=== PATIENT | female | born 1990 | race Caucasian/White ===

== ENCOUNTER 2017-09-05 21:36 | Emergency (ER) | payer OTHER, SELFPAY ==
[2017-09-05 21:37] VITALS: BP 131/72; PULSE 92; RESP 18; TEMP 36.9; O2SAT 97; BMI 39.4
--- NOTE | 2017-09-05 22:03 | ED.VISSUMM ---
- ER Visit Summary Date of Service: 09/05/17 Chief Complaint: [] Cough History of Present Illness: The patient is a 26 F [] complaining of cough. Reports cough is nonproductive. Denies fevers. Denies chest pain or shortness of breath. No other complaints at this time. Physical Examination: [] Afebrile, vital signs stable. Patient is very malodorous. Moist mucous membranes. No posterior oropharyngeal erythema. Cardiovascular exam is regular rate and rhythm. Lungs are clear to auscultation. Abdomen is soft and nontender. Test Results: [] None. Emergency Department Course and Treatment: [] Patient given a single oral dose of Decadron for symptom relief. She was given a prescription for Tessalon Perles and encouraged to follow-up with a primary care physician. No diagnostic or laboratory testing was warranted for this very benign presentation. Treatment Plan: [] Follow-up with primary care physician. Disposition: [] Discharge, stable. Impression: [] URI This note was generated with [employer] dictation software. It may contain incorrect words, spelling, and punctuation that were not noted in review of the chart prior to signing ED Disposition - Plan for ED Patient: Chief Complaint: Cold Sx Referrals: NOT,DEFINED [Primary Care Provider] -
--- NOTE | 2017-09-05 22:05 | ED.DEP ---
ED Disposition - Plan for ED Patient: Disposition: Home or Assisted Living Chief Complaint: Cold Sx Instructions: ED Upper Resp Infec No Abx Tx Prescriptions: Benzonatate [Tessalon Perle] 100 mg PO 4X/DAY PRN PRN #20 cap PRN Reason: Cough Referrals: NOT,DEFINED [Primary Care Provider] -
== END 2017-09-05 22:19 | disposition home or self-care (01) ==
LOC: ED 22:16
PROVIDERS: Emergency Provider Emergency Medicine
DX: J06.9 Acute upper respiratory infection, unspecified (principal)
CPT/HCPCS: 99283

== ENCOUNTER 2018-10-23 17:02 | Emergency (ER) | payer OTHER, SELFPAY ==
[2018-10-23 17:04] VITALS: BP 127/78; PULSE 88; RESP 14; TEMP 36.8; O2SAT 98; BMI 40.9
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
[2018-10-23 17:51] LABS: Bacteria 0 SEEN /hpf (None Seen); Mucous, Urine 0 SEEN /hpf (<or=2+); Red Blood Cells-Urine 0 SEEN /hpf (0-5); White Blood Cells 0 SEEN /hpf (0-5)
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
[2018-10-23 18:17] LABS: Color, Urine Yellow (Yellow); Glucose, Dipstick Normal (Normal); Ketone-Dipstick Negative (Negative); Leukocyte Esterase-Dipstick 25 /ul (Negative); Nitrite-Dipstick Negative (Negative); Occult Blood-Urine Negative /ul (Negative); Protein-Dipstick Negative (Negative); Urine Bilirubin Dipstick Negative (Negative); Urine Clarity Sl. Cloudy (Clear); Urine Urobilinogen Normal (Normal)
[2018-10-23 18:21] LABS: Internal QC Validated? YES +Cl - CLEAR BKGD; Pregnancy, Urine Negative Negative
[2018-10-23 18:44] LABS: Squamous Epithelial Cells - UA 0-5 SEEN /hpf (5-10)
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
[2018-10-23 20:41] VITALS: PULSE 72; RESP 16; O2SAT 97
== END 2018-10-23 20:41 | disposition home or self-care (01) ==
PROVIDERS: Emergency Provider Emergency Medicine
DX: S16.1XXA Strain of muscle, fascia and tendon at neck level, initial encounter (principal); S39.012A Strain of muscle, fascia and tendon of lower back, initial encounter; V43.52XA Car driver injured in collision with other type car in traffic accident, initial encounter; Y93.I9 Activity, other involving external motion; Y92.410 Unspecified street and highway as the place of occurrence of the external cause; Y99.8 Other external cause status
CPT/HCPCS: 72040; 72100; 72170; 81001; 81025; 99282

== ENCOUNTER → 2020-03-08 16:18 | Outpatient (CLI) | payer SELFPAY ==
[2020-03-08 12:41] VITALS: BMI 40.9
[2020-03-08 18:24] LABS: Amphetamine Urine VISTA NEGATIVE (<1000 ng/mL); Barbiturate Urine VISTA NEGATIVE (< 200 ng/mL); Benzodiazepine Urine VISTA NEGATIVE (< 200 ng/mL); Cocaine Urine VISTA NEGATIVE (< 300 ng/mL); Ecstacy Urine VISTA NEGATIVE (< 500 ng/mL); Methadone Urine VISTA NEGATIVE (< 300 ng/mL); PCP Urine VISTA NEGATIVE (< 25 ng/mL); THC Urine VISTA NEGATIVE (< 50 ng/mL); Vista UDS pH Range 6
[2020-03-08 18:39] LABS: Chlamydia Trachomatis by PCR Negative (Negative); Neisserai gonorrhoeae by PCR Negative (Negative); Probe Check PASS; Sample Adequacy Control PASS; Specimen Processing Control PASS
== END ==
PROVIDERS: Referring Provider Obstetrics & Gynecology; Visit Provider Obstetrics & Gynecology
DX: Z34.90 Encounter for supervision of normal pregnancy, unspecified, unspecified trimester (principal)
CPT/HCPCS: 80307; 87086; 87088; 87491; 87591

== ENCOUNTER → 2020-03-09 10:38 | Outpatient (CLI) | payer SELFPAY ==
[2020-03-08 12:41] VITALS: BMI 40.9
[2020-03-09 11:05] LABS: Absolute Lymphocyte Count 1.24 X10^3/uL (0.83-4.51); Absolute Neutrophil Count 6.5 X10^3/uL (2.0-7.7); Basophil# 0.02 X10^3/uL; Basophil% 0.2 % (0-1); Eosinophil# 0.05 X10^3/uL; Eosinophils% 0.6 % (0-5); Hematocrit 39.9 % (37-47); Hemoglobin 13.6 g/dL (12.0-15.0); Lymphocyte # 1.24 X10^3/ul (4.0); Mean Corp Hgb Conc 34.1 g/dL (32-36); Mean Corpuscular Hgb 29.9 pg (27.0-32.0); Mean Corpuscular Volume 87.7 fL (81-99); Mean Platelet Vol. 11.2 fl (6.2-12.0); Monocyte% 4.8 % (0-10); NRBC Flagged by Analyzer 0 % (0-5); Neutrophil # 6.54 X10^3/uL (2.7-7.7); Platelet Count 217 K/mm3 (150-450); RBC Distribution Width CV 11.5 % (11.6-14.6); RBC Distribution Width SD 37.1 fl (35.1-43.9); Red Blood Count 4.55 M/mm3 (4.2-5.4); White Blood Count 8.3 K/mm3 (4.4-11.0)
[2020-03-09 11:54] LABS: NATERA MAILED SPECIMEN
[2020-03-09 12:08] LABS: HIV - WCH Non-Reactive (Nonreactive); Hepatitis B Surface Antigen Non-Reactive (Nonreactive); Hepatitis C Antibody Non-Reactive (Nonreactive); Rubella IgG 175.1 IU/mL
[2020-03-16 11:05] LABS: Rapid Plasmin Reagin (RPR) NONREACTIVE (NONREACTIVE)
== END ==
LOC: PAVLAB 10:40
PROVIDERS: Referring Provider Obstetrics & Gynecology; Visit Provider Obstetrics & Gynecology
DX: Z34.81 Encounter for supervision of other normal pregnancy, first trimester (principal)
CPT/HCPCS: 36415; 85025; 86592; 86703; 86762; 86803; 86850; 86900; 86901; 87340

== ENCOUNTER → 2020-03-14 12:56 | Outpatient (CLI) | payer SELFPAY ==
[2020-03-08 12:41] VITALS: BMI 40.9
[2020-03-14 13:25] LABS: Glucose Challenge Gest 1H 50g 113 mg/dL (70-140)
[2020-03-14 14:06] LABS: NATERA MAILED SPECIMEN
== END ==
LOC: PAVLAB 12:56
PROVIDERS: Referring Provider Obstetrics & Gynecology; Visit Provider Obstetrics & Gynecology
DX: O09.91 Supervision of high risk pregnancy, unspecified, first trimester (principal); O99.211 Obesity complicating pregnancy, first trimester; E66.9 Obesity, unspecified; Z3A.00 Weeks of gestation of pregnancy not specified
CPT/HCPCS: 36415; 82950

== ENCOUNTER 2020-03-25 08:10 | Emergency (ER) | payer SELFPAY ==
[2020-03-08 12:41] VITALS: BMI 40.9
[2020-03-25 08:11] VITALS: BP 96/56; PULSE 121; RESP 18; TEMP 36.3; O2SAT 97; BMI 40.3
--- NOTE | 2020-03-25 08:36 | ED.VIS.GEN ---
History of Present Illness Chief Complaint: Abd Pain Informant: Patient Narrative: 29-year-old female who is approximately 13 weeks reports abdominal cramping nausea vomiting. She has had nausea and vomiting this and is currently taking Zofran which she notes is constipating. She states she has not had a bowel movement for 1 week. She is tried Metamucil and MiraLAX. She has attempted a manual disimpaction. None of this has relieved her constipation. She states that she feels pressure in the rectum but nothing seems to,. She is worried about straining too hard. Past Medical History - Allergies and Home Meds Allergies/Adverse Reactions: Allergies iodine Allergy (Verified 03/25/20 08:10) [place] Primary Care Physician: Care Physician,No Primary [Primary Care Provider] - Smoking Status: Never smoker Review of Systems General: Denies: Chills, Fever, Sweats Eyes: Denies: Visual changes - bilaterally, Diplopia ENT: Denies: Rhinorrhea, Sore throat Cardiovascular: Denies: Chest pain, Palpitations Respiratory: Denies: Dyspnea, Cough, Dyspnea on exertion Gastrointestinal: Reports: Abdominal pain - Abdominal cramping, Nausea, Vomiting, Constipation. Denies: Diarrhea, Melena, Hematochezia Genitourinary: Denies: Dysuria, Hematuria, Frequency Musculoskeletal: Denies: Back pain, Extremity Pain Skin: Denies: Rash, Wounds Neurological: Denies: Headache, Weakness, Numbness Physical Exam Vital Signs/Narrative: Vital Signs Temp Pulse Resp BP Pulse Ox 03/25/20 08:11 97.3 F L 121 H 18 96/56 L 97 Inital Vital Signs reviewed: Yes General: Well nourished, Well developed, Obese, No Acute Distress Head: Normocephalic, Atraumatic Eyes: Perrl, EOMI ENT: Moist mucous membranes, No rhinorrhea Neck: Supple, Nontender Cardiovascular: Regular rate, Regular rhythm, No murmurs Respiratory: No distress, CTA bilaterally, Chest nontender Abdomen: Soft, Nontender, Nondistended, Normal bowel sounds Rectal: - - Soft stool in the rectal vault Back: Nontender, Normal Inspection Extremities: Nontender, No edema Skin: Normal color, No rash Neurological: Alert, Oriented x3, Cranial nerves II-XII grossly intact, Normal Strength, Normal Sensation Psychological: Normal affect, Normal Mood Diagnostic/Tx/Re-eval - Medical Decision Making Bedside ultrasound performed by this physician demonstrates a single live intrauterine with a heart rate of 154 bpm with good motion. She received a soapsuds enema and had excellent results. I would like to have her keep using daily MiraLAX. Return if worsening or concerns ED Disposition - Plan for ED Patient: Disposition: Home or Assisted Living Diagnosis: Constipation, Second trimester Instructions: ED Constipation Referrals: Elsy Duran MD [STAFF PHYSICIAN] - (as scheduled)
[2020-03-25 10:18] VITALS: BP 111/73; PULSE 82; RESP 16; O2SAT 98
== END 2020-03-25 10:19 | disposition home or self-care (01) ==
PROVIDERS: Emergency Provider Emergency Medicine
DX: O99.611 Diseases of the digestive system complicating pregnancy, first trimester (principal); K59.00 Constipation, unspecified; O99.211 Obesity complicating pregnancy, first trimester; Z3A.13 13 weeks gestation of pregnancy
CPT/HCPCS: 99284

== ENCOUNTER → 2020-05-03 | Outpatient (CLI) | payer SELFPAY ==
[2020-04-05 11:32] VITALS: BMI 40.3
--- NOTE | 2020-05-03 12:31 | US_ITS ---
STUDY: SECOND AND THIRD TRIMESTER OBSTETRICAL ULTRASOUND REASON FOR EXAM: Female, 29 years old SCREENING ANATOMY LMP: 12/20/2019. TECHNIQUE: Transvaginal TECHNICAL QUALITY: Adequate. PRIOR ULTRASOUND: None. FINDINGS: There is a single intrauterine fetus. The fetus is in a cephalic presentation. There is demonstrated cardiac activity with a heart rate of 60 bpm. There is a normal amniotic fluid volume. The largest amniotic fluid pocket measures 5.2 cm. The amniotic fluid index (BAALJI) is within normal limits. The placenta is posterior in location and is not low lying. There are Grade 0 placental changes. The cervix measures 5.7 in length. The bilateral adnexal regions are normal. BIOMETRY: BPD: 4.68 cm: 20 weeks, 1 days HC: 18.08 cm: 20 weeks, 3 days AC: 15.19 cm: 20 weeks, 2 days FL: 3 cm: 90 weeks, 1 days CI: 72% FL/BPD: 64% FL/HC: FL/AC: 19.7% HC/AC: 1.19 age by current US: 20 weeks, 0 days. SONA by current US: 09/20/2020. Estimated weight: 323 grams, +/- 48 grams, 73.6 %. Age by LMP: 19 weeks, 2 days. SONA by LMP: 09/25/2020. ANATOMY: Gender: Female Cranium: Normal lateral ventricles. Normal choroid plexus. Normal cerebellum. Normal cisterna magna. Normal face, nose and lips. Chest: Normal 4-chamber heart. Abdomen/Pelvis: Normal diaphragm. Normal stomach. Normal abdominal wall. Normal cord insertion. Normal 3 vessel cord. Normal kidneys. Normal bladder. Spine: Normal cervical spine. Normal thoracic spine. Normal lumbar spine. Normal sacrum. Extremities: Normal bilateral upper extremities. Normal bilateral lower extremities. US/OB Anatomy Scan IMPRESSION: Single live intrauterine gestation with a mean gestational age of 20 weeks. Electronically Signed: Mc Gay, at 15:40 EDT , Service support ,
== END | disposition home or self-care (01) ==
PROVIDERS: Referring Provider Obstetrics & Gynecology; Visit Provider Obstetrics & Gynecology
DX: O09.90 Supervision of high risk pregnancy, unspecified, unspecified trimester (principal); Z3A.00 Weeks of gestation of pregnancy not specified
CPT/HCPCS: 76805; 76817

== ENCOUNTER 2020-05-17 07:52 | Outpatient (CLI) | payer SELFPAY ==
[2020-05-05 15:05] VITALS: BMI 40.3
[2020-05-17 08:12] VITALS: BMI 39.8
[2020-05-17 08:19] VITALS: PULSE 71; TEMP 36.6; O2SAT 96
[2020-05-17 08:20] VITALS: BP 106/60; PULSE 72
[2020-05-17 08:30] LABS: Hematocrit 33.9 % (37-47); Hemoglobin 11.4 g/dL (12.0-15.0); Mean Corp Hgb Conc 33.6 g/dL (32-36); Mean Corpuscular Hgb 29.8 pg (27.0-32.0); Mean Corpuscular Volume 88.5 fL (81-99); Mean Platelet Vol. 10.7 fl (6.2-12.0); Platelet Count 197 K/mm3 (150-450); RBC Distribution Width CV 12.1 % (11.6-14.6); RBC Distribution Width SD 38.8 fl (35.1-43.9); Red Blood Count 3.83 M/mm3 (4.2-5.4); White Blood Count 10.2 K/mm3 (4.4-11.0)
[2020-05-17 08:46] LABS: Red Blood Cells-Urine 0 SEEN /hpf (0-5)
[2020-05-17 09:02] LABS: Color, Urine Yellow (Yellow); Glucose, Dipstick Normal (Normal); Ketone-Dipstick 5 mg/dl (Negative); Leukocyte Esterase-Dipstick 100 /ul (Negative); Nitrite-Dipstick Negative (Negative); Occult Blood-Urine 10 /ul (Negative); Protein-Dipstick 30 mg/dl (Negative); Urine Bilirubin Dipstick Negative (Negative); Urine Clarity Clear (Clear); Urine Urobilinogen 1 mg/dl (Normal)
[2020-05-17 09:14] LABS: Bacteria 2+ /hpf (None Seen); Mucous, Urine 2+ /hpf (<or=2+); Squamous Epithelial Cells - UA 10-25 SEEN /hpf (5-10); White Blood Cells 5-10 SEEN /hpf (0-5)
[2020-05-17 09:43] LABS: Fibrinogen 456 mg/dl (203-444)
--- NOTE | 2020-05-18 08:30 | OB.TRI.PN_ITS ---
Progress Notes Date of Service: 05/17/20 Progress Note: Patient presents for triage evaluation secondary to abdominal pain FHT:present 140-150 toco no regular ctx abdominal pain - nl cbc fibrinogen, not dilated and no fevers. stable, reassuring maternal and status patient discharged to home to follow-up as scheduled. See problem list details for additional plan information. Laboratory Studies: Laboratory Tests 05/17/20 05/17/20 05/17/20 Range/Units 09:10 08:39 08:18 WBC (4.4-11.0) K/mm3 RBC (4.2-5.4) M/mm3 Hgb (12.0-15.0) g/dL Hct (37-47) % MCV (81-99) fL MCH (27.0-32.0) pg MCHC (32-36) g/dL RDW Std Deviation (35.1-43.9) fl RDW Coeff of [place] (11.6-14.6) % Plt Count (150-450) K/mm3 MPV (6.2-12.0) fl Fibrinogen 456 H Cancelled Urine Color Yellow (Yellow) Urine Clarity Clear (Clear) Urine pH 8.0 (5.0 - 8.0) Ur Specific [place] 1.020 (1.002-1.030) Urine Protein 30 H (Negative) mg/dl Urine Glucose (UA) Normal (Normal) mg/dl Urine Ketones 5 H (Negative) mg/dl Urine Occult Blood 10 H (Negative) /ul Urine Nitrite Negative (Negative) Urine Bilirubin Negative (Negative) mg/dL Urine Urobilinogen 1 H (Normal) mg/dl Ur Leukocyte Esterase 100 H (Negative) /ul Urine RBC 0 SEEN (0-5) /hpf Urine WBC 5-10 SEEN (0-5) /hpf Ur Squamous Epith Cells 10-25 SEEN (5-10) /hpf Urine Bacteria 2+ (None Seen) /hpf Urine Mucus 2+ (<or=2+) /hpf 05/17/20 Range/Units 08:18 WBC 10.2 (4.4-11.0) K/mm3 RBC 3.83 L (4.2-5.4) M/mm3 Hgb 11.4 L (12.0-15.0) g/dL Hct 33.9 L (37-47) % MCV 88.5 (81-99) fL MCH 29.8 (27.0-32.0) pg MCHC 33.6 (32-36) g/dL RDW Std Deviation 38.8 (35.1-43.9) fl RDW Coeff of [place]hana 12.1 (11.6-14.6) % Plt Count 197 (150-450) K/mm3 MPV 10.7 (6.2-12.0) fl Fibrinogen Urine Color (Yellow) Urine Clarity (Clear) Urine pH (5.0 - 8.0) Ur Specific [place] (1.002-1.030) Urine Protein (Negative) mg/dl Urine Glucose (UA) (Normal) mg/dl Urine Ketones (Negative) mg/dl Urine Occult Blood (Negative) /ul Urine Nitrite (Negative) Urine Bilirubin (Negative) mg/dL Urine Urobilinogen (Normal) mg/dl Ur Leukocyte Esterase (Negative) /ul Urine RBC (0-5) /hpf Urine WBC (0-5) /hpf Ur Squamous Epith Cells (5-10) /hpf Urine Bacteria (None Seen) /hpf Urine Mucus (<or=2+) /hpf
== END 2020-05-17 10:15 | disposition home or self-care (01) ==
LOC: WPOUT 08:04 → OBT 08:05
PROVIDERS: Referring Provider Obstetrics & Gynecology; Visit Provider Obstetrics & Gynecology
DX: O26.899 Other specified pregnancy related conditions, unspecified trimester (principal); R10.9 Unspecified abdominal pain; Z3A.00 Weeks of gestation of pregnancy not specified
CPT/HCPCS: 36415; 59025; 59050; 81001; 85027; 85384; 99218; G0378

== ENCOUNTER → 2020-06-21 09:25 | Outpatient (CLI) | payer SELFPAY ==
[2020-06-01 13:34] VITALS: BMI 40.9
[2020-06-15 14:33] VITALS: BMI 39.6
[2020-06-21 09:45] LABS: Absolute Lymphocyte Count 1.15 X10^3/uL (0.83-4.51); Basophil# 0.02 X10^3/uL; Basophil% 0.2 % (0-1); Eosinophil# 0.06 X10^3/uL; Eosinophils% 0.7 % (0-5); Hemoglobin 11.9 g/dL (12.0-15.0); Lymphocyte # 1.15 X10^3/ul (4.0); Lymphocyte % 12.8 % (19-41); Mean Corp Hgb Conc 33.1 g/dL (32-36); Mean Corpuscular Hgb 30.1 pg (27.0-32.0); Mean Corpuscular Volume 91.1 fL (81-99); Mean Platelet Vol. 10.9 fl (6.2-12.0); Monocyte# 0.67 X10^3/uL; Monocyte% 7.5 % (0-10); NRBC Flagged by Analyzer 0 % (0-5); Neutrophil # 7.02 X10^3/uL (2.7-7.7); Neutrophil % 78.1 % (47-70); Platelet Count 209 K/mm3 (150-450); RBC Distribution Width CV 12.1 % (11.6-14.6); RBC Distribution Width SD 40.4 fl (35.1-43.9); Red Blood Count 3.95 M/mm3 (4.2-5.4)
[2020-06-21 09:51] LABS: Glucose Challenge Gest 1H 50g 75 mg/dL (70-140)
== END ==
LOC: PAVLAB 09:26
PROVIDERS: Referring Provider Nurse Practitioner Women's Health; Visit Provider Nurse Practitioner Women's Health
DX: O09.90 Supervision of high risk pregnancy, unspecified, unspecified trimester (principal); Z13.1 Encounter for screening for diabetes mellitus
CPT/HCPCS: 36415; 82950; 85025

== ENCOUNTER → 2020-07-21 | Outpatient (CLI) | payer SELFPAY ==
[2020-07-21 13:42] VITALS: BMI 39.2
== END | disposition home or self-care (01) ==
PROVIDERS: Referring Provider Obstetrics & Gynecology; Visit Provider Obstetrics & Gynecology
DX: O23.40 Unspecified infection of urinary tract in pregnancy, unspecified trimester (principal); O26.899 Other specified pregnancy related conditions, unspecified trimester; N89.8 Other specified noninflammatory disorders of vagina; Z3A.00 Weeks of gestation of pregnancy not specified
CPT/HCPCS: 87070; 87086; 87088; 87205

== ENCOUNTER → 2020-07-25 17:14 | Outpatient (CLI) | payer SELFPAY ==
[2020-07-21 13:42] VITALS: BMI 39.2
== END ==
LOC: MTDU 17:14
PROVIDERS: Referring Provider Obstetrics & Gynecology; Visit Provider Obstetrics & Gynecology
DX: U07.1 COVID-19 (principal)
CPT/HCPCS: 87635; C9803; U0003

== ENCOUNTER 2020-07-29 15:45 | Outpatient (CLI) | payer SELFPAY ==
[2020-07-21 13:42] VITALS: BMI 39.2
[2020-07-29 15:59] VITALS: TEMP 36.8; O2SAT 97
[2020-07-29 16:01] VITALS: PULSE 78; O2SAT 97
[2020-07-29 16:05] VITALS: BMI 39.2
--- NOTE | 2020-07-29 16:06 | NURSING ---
Per office visit on 07/21/20. Covid positive. Did not stop at scale while escorted to neg. pressure room.
--- NOTE | 2020-07-31 08:28 | OB.TRI.PN ---
Progress Notes Date of Service: 07/29/20 Progress Note: Patient presents for triage evaluation secondary to decreased movement FHT: Moderate variability reactive no decelerations category I tracing [place]: Irritability Assessment and plan: Reactive NST, reassuring maternal and status patient discharged to home to follow-up at next scheduled visit. See problem list details for additional plan information. Multi Select Codes - Urinary/Genital Urinary/Genital CPT Codes: 22374-52 non-stress test Interp
== END 2020-07-29 16:40 | disposition home or self-care (01) ==
LOC: WPOUT 15:57 → WP 15:58
PROVIDERS: Visit Provider Obstetrics & Gynecology
DX: O36.8190 Decreased fetal movements, unspecified trimester, not applicable or unspecified (principal); Z3A.00 Weeks of gestation of pregnancy not specified
CPT/HCPCS: 59025; 59050; 99218; G0378

== ENCOUNTER 2020-08-03 22:25 | Outpatient (CLI) | payer SELFPAY ==
[2020-08-03 22:32] VITALS: BMI 39.6
[2020-08-03 22:41] VITALS: TEMP 36.4
[2020-08-03 22:52] VITALS: BP 101/62
[2020-08-03 22:53] VITALS: PULSE 79; O2SAT 97
[2020-08-03 22:59] LABS: Mucous, Urine 0 SEEN /hpf (<or=2+); Red Blood Cells-Urine 0 SEEN /hpf (0-5)
[2020-08-03 23:00] LABS: Color, Urine Yellow (Yellow); Glucose, Dipstick Normal (Normal); Ketone-Dipstick Negative (Negative); Leukocyte Esterase-Dipstick 500 /ul (Negative); Nitrite-Dipstick Negative (Negative); Occult Blood-Urine Negative /ul (Negative); Protein-Dipstick Negative (Negative); Urine Bilirubin Dipstick Negative (Negative); Urine Clarity Sl. Cloudy (Clear); Urine Urobilinogen Normal (Normal)
[2020-08-03 23:07] LABS: Amorphous Sediment 2+ PHOS; Bacteria 2+ /hpf (None Seen); Squamous Epithelial Cells - UA 10-25 SEEN /hpf (5-10); White Blood Cells 50-100 SEEN /hpf (0-5)
[2020-08-03 23:20] LABS: ROM Internal Control Test YES-OK TO RESULT pt. (Internal QC); ROM Patient Test Negative (Negative)
[2020-08-03] MEDS: Cephalexin 500 MG Capsule PO (23:40)
--- NOTE | 2020-08-04 09:43 | OB.TRI.PN_ITS ---
Progress Notes Date of Service: 08/03/20 Progress Note: Patient presents for triage evaluation secondary to leakage of fluid and contractions. ROM plus was negative. Cervix was closed. Regular contractions noted on the monitor, but patient not uncomfortable with contractions. Urinalysis showed signs of UTI. Antibiotics sent to pharmacy and urine culture sent. FHT: Moderate variability reactive no decelerations category I tracing [place]: Every 3 to 5 minutes palpating mild Assessment and plan: Reactive NST, reassuring maternal and status patient discharged to home to follow-up next scheduled visit. See problem list details for additional plan information. Laboratory Studies: Laboratory Tests 08/03/20 08/03/20 Range/Units 22:48 22:45 Urine Color Yellow (Yellow) Urine Clarity Sl. Cloudy (Clear) Urine pH 7.0 (5.0 - 8.0) Ur Specific [place] 1.010 (1.002-1.030) Urine Protein Negative (Negative) mg/dl Urine Glucose (UA) Normal (Normal) mg/dl Urine Ketones Negative (Negative) mg/dl Urine Occult Blood Negative (Negative) /ul Urine Nitrite Negative (Negative) Urine Bilirubin Negative (Negative) mg/dL Urine Urobilinogen Normal (Normal) mg/dl Ur Leukocyte Esterase 500 H (Negative) /ul Urine RBC 0 SEEN (0-5) /hpf Urine WBC 50-100 SEEN (0-5) /hpf Ur Squamous Epith Cells 10-25 SEEN (5-10) /hpf Amorphous Sediment 2+ PHOS Urine Bacteria 2+ (None Seen) /hpf Urine Mucus 0 SEEN (<or=2+) /hpf Vag Amniotic Fld Detect Negative (Negative) - Problem List (1) UTI in Status: Acute Qualifiers: Comment: treated 06/15/20. UTI again noted in triage on 08/03. Treated with Keflex Multi Select Codes - Urinary/Genital Urinary/Genital CPT Codes: 84735-63 non-stress test Interp
== END 2020-08-03 23:45 | disposition home or self-care (01) ==
LOC: WPOUT 22:31 → WP 22:32
PROVIDERS: Referring Provider Obstetrics & Gynecology; Visit Provider Obstetrics & Gynecology
DX: O23.40 Unspecified infection of urinary tract in pregnancy, unspecified trimester (principal); Z3A.00 Weeks of gestation of pregnancy not specified
CPT/HCPCS: 59025; 59050; 81001; 84112; 87086; 87088; 99218; G0378

== ENCOUNTER → 2020-08-07 10:47 | Outpatient (CLI) | payer BC, SELFPAY ==
[2020-07-29 16:05] VITALS: BMI 39.2
[2020-08-03 22:32] VITALS: BMI 39.6
--- NOTE | 2020-08-07 10:53 | US_ITS ---
STUDY: SECOND AND THIRD TRIMESTER OBSTETRICAL ULTRASOUND - LIMITED REASON FOR EXAM: Female, 29 years old GROWTH LMP: 12/20/2019. PRIOR ULTRASOUND: Comparison is made with prior study dated 05/03/2020. TECHNIQUE: Transabdominal TECHNICAL QUALITY: Adequate. FINDINGS: There is a single intrauterine fetus. The fetus is in a cephalic presentation. There is demonstrated cardiac activity with a heart rate of 158 bpm. There is a normal amniotic fluid volume. The largest amniotic fluid pocket measures 5.7 cm. The amniotic fluid index (BALAJI) is 15.2 cm. The placenta is fundal in location. There are Grade 0 placental changes. The cervix measures 4.1 cm in length. BIOMETRY: BPD: 8.91 cm: 36 weeks, 0 days HC: 31 cm: 34 weeks, 4 days AC: 31.2 cm: 35 weeks, 1 days FL: 6.27 cm: 32 weeks, 3 days Age by LMP: 33 weeks, 0 days. SONA by LMP: 09/25/2020. age by prior US: 33 weeks, 5 days. SONA by prior US: 09/20/2019. age by current US: 34 weeks, 2 days. SONA by current US: 09/16/2019. Estimated weight: 2486 grams, +/- 373 grams, 87 percentile. US/OB Limited With Biometrics IMPRESSION: Single live intrauterine gestation with a mean gestational age of 33 weeks and 5 days. The measurements obtained today fall within the normal expected range. Electronically Signed: Mc Gay, at 13:45 EST , Service support ,
== END ==
PROVIDERS: Referring Provider Obstetrics & Gynecology; Visit Provider Obstetrics & Gynecology
DX: O98.519 Other viral diseases complicating pregnancy, unspecified trimester (principal); U07.1 COVID-19; Z3A.00 Weeks of gestation of pregnancy not specified
CPT/HCPCS: 76816

== ENCOUNTER 2020-08-15 16:55 | Outpatient (CLI) | payer SELFPAY ==
[2020-08-15 16:56] VITALS: BMI 40.3
[2020-08-15 17:08] VITALS: BP 116/70; PULSE 90; TEMP 37.1; O2SAT 98; BMI 39.3
[2020-08-15 17:22] LABS: Mucous, Urine 0 SEEN /hpf (<or=2+); Red Blood Cells-Urine 0 SEEN /hpf (0-5); Squamous Epithelial Cells - UA 0 SEEN /hpf (5-10)
[2020-08-15 17:24] VITALS: BP 116/70; PULSE 90
[2020-08-15 17:25] VITALS: PULSE 106; O2SAT 98
[2020-08-15 17:30] LABS: Color, Urine Yellow (Yellow); Glucose, Dipstick Normal (Normal); Ketone-Dipstick Negative (Negative); Leukocyte Esterase-Dipstick 100 /ul (Negative); Nitrite-Dipstick Negative (Negative); Occult Blood-Urine Negative /ul (Negative); Protein-Dipstick Negative (Negative); Urine Bilirubin Dipstick Negative (Negative); Urine Clarity Clear (Clear); Urine Urobilinogen Normal (Normal); Urine pH 6.5 (5.0 - 8.0)
[2020-08-15 18:25] LABS: ROM Internal Control Test YES-OK TO RESULT pt. (Internal QC); ROM Patient Test Negative (Negative)
[2020-08-15 18:27] LABS: Bacteria 1+ /hpf (None Seen); White Blood Cells 0-5 SEEN /hpf (0-5)
[2020-08-15 19:17] VITALS: BP 128/80; PULSE 78
[2020-08-15 19:18] VITALS: TEMP 36.6
[2020-08-15] MEDS: Betamethasone/Betamethasone 30 MG/5 ML Vial 12 MG IM (20:34)
[2020-08-15 20:41] VITALS: BP 128/80; RESP 16; TEMP 36.6
--- NOTE | 2020-08-17 13:12 | OB.TRI.PN_ITS ---
Progress Notes Date of Service: 08/15/20 Progress Note: Patient presents for triage evaluation secondary to contractions FHT: 140 moderate variability reactive no decelerations category I tracing [place]: Every 3 to 5 then irregular contractions Assessment and plan: 29-year-old 34 weeks with threatened labor no significant cervical change, Celestone x1 given for prematurity. Reactive NST, reassuring maternal and status patient discharged to home to follow-up for second dose of Celestone tomorrow for prematurity. See problem list details for additional plan information. Laboratory Studies: Laboratory Tests 08/15/20 08/15/20 Range/Units 17:45 17:05 Urine Color Yellow (Yellow) Urine Clarity Clear (Clear) Urine pH 6.5 (5.0 - 8.0) Ur Specific [place] 1.010 (1.002-1.030) Urine Protein Negative (Negative) mg/dl Urine Glucose (UA) Normal (Normal) mg/dl Urine Ketones Negative (Negative) mg/dl Urine Occult Blood Negative (Negative) /ul Urine Nitrite Negative (Negative) Urine Bilirubin Negative (Negative) mg/dL Urine Urobilinogen Normal (Normal) mg/dl Ur Leukocyte Esterase 100 H (Negative) /ul Urine RBC 0 SEEN (0-5) /hpf Urine WBC 0-5 SEEN (0-5) /hpf Ur Squamous Epith Cells 0 SEEN (5-10) /hpf Urine Bacteria 1+ (None Seen) /hpf Urine Mucus 0 SEEN (<or=2+) /hpf Vag Amniotic Fld Detect Negative (Negative) - Problem List (1) Threatened labor Status: Acute Comment: Seen in triage on August 15 and , given Celestone x2 on these days. 1 cm dilated stable. (2) Anxiety during , antepartum Status: Acute Comment: Patient with increasing anxiety. Starting to have panic attacks. Zoloft prescribed. (3) Asthma during Status: Acute Comment: exercise induced. albuterol PRN. (4) History of tetanus, diphtheria, and acellular pertussis booster vaccination (Tdap) Status: Acute Comment: 06/28/20 (5) Influenza vaccination declined Status: Acute (6) Lab test positive for detection of COVID-19 virus Status: Acute Comment: tested positive 07/27/2020 baby asa now and growth u/s (7) Obesity affecting Status: Acute Qualifiers: Comment: 1 tm glucola. encouraged healthy weight gain. recommend third trimester screening. (8) Status: Acute Qualifiers: Comment: NIPT low risk. carrier, and ntd screening declined. Anatomy normal. (9) Supervision of high-risk Status: Acute Qualifiers: Comment: PRR SONA 09/25/20 Girl -Rae Mullinsora Christopher (10) UTI in Status: Acute Qualifiers: Comment: treated 06/15/20. UTI again noted in triage on 08/03. Treated with Keflex Multi Select Codes - Urinary/Genital Urinary/Genital CPT Codes: 77935-71 non-stress test Interp
== END 2020-08-15 20:47 | disposition home or self-care (01) ==
LOC: WPOUT 17:01 → WP 17:02
PROVIDERS: Visit Provider Obstetrics & Gynecology
DX: O60.03 Preterm labor without delivery, third trimester (principal); Z3A.34 34 weeks gestation of pregnancy
CPT/HCPCS: 59025; 59050; 81001; 84112; 87086; 87088; 96372; 99218; G0378; J0702

== ENCOUNTER 2020-08-16 19:55 | Outpatient (CLI) | payer SELFPAY ==
[2020-08-15 17:08] VITALS: BMI 39.3
[2020-08-16 20:20] VITALS: BMI 39.8
--- NOTE | 2020-08-16 20:24 | NURSING ---
Here for 2nd Celeston injection.
[2020-08-16] MEDS: Betamethasone/Betamethasone 30 MG/5 ML Vial 12 MG IM (20:32)
--- NOTE | 2020-08-17 13:14 | OB.TRI.PN ---
Progress Notes Date of Service: 08/16/20 Progress Note: Celestone given for threatened premature labor and prematurity - Problem List (1) Threatened labor Status: Acute Comment: Seen in triage on August 15 and , given Celestone x2 on these days. 1 cm dilated stable. Multi Select Codes - Urinary/Genital Urinary/Genital CPT Codes: No Charge - Report visit no charge
== END 2020-08-16 20:37 | disposition home or self-care (01) ==
LOC: WPOUT 20:02 → WP 20:02
PROVIDERS: Visit Provider Obstetrics & Gynecology
DX: O60.00 Preterm labor without delivery, unspecified trimester (principal); Z3A.00 Weeks of gestation of pregnancy not specified
CPT/HCPCS: 96372; 99218; G0378; J0702

== ENCOUNTER 2020-08-21 17:05 | Outpatient (CLI) | payer BC, SELFPAY ==
[2020-08-18 14:47] VITALS: BMI 40.3
[2020-08-21 17:58] LABS: ROM Internal Control Test YES-OK TO RESULT pt. (Internal QC)
[2020-08-21 17:59] LABS: ROM Patient Test Negative (Negative)
[2020-08-21 18:07] VITALS: BP 124/83; PULSE 92; TEMP 37
[2020-08-21 18:18] VITALS: BMI 39.4
[2020-08-21 18:24] VITALS: BP 111/78; PULSE 83
[2020-08-21 19:17] VITALS: BP 114/79; PULSE 84; TEMP 37.1; O2SAT 97
--- NOTE | 2020-08-23 12:32 | OB.TRI.NOTE ---
- Problem List (1) Visual changes Status: Acute (2) Threatened labor Status: Acute Comment: Seen in triage on August 15 and , given Celestone x2 on these days. 1 cm dilated stable. (3) Supervision of high-risk Status: Acute Qualifiers: Comment: PRR SONA 09/25/20 Girl -Rae MARRERO Mayra Christopher History of Present Illness Was patient seen by the physician?: Yes Reason For Visit: RULE OUT LABOR Date of Service: 08/21/20 Final SONA: 09/25/20 Final SONA Source: US <20 weeks Gestational age: 35 Weeks and 2 Days History of Present Illness: 29-year-old G2, P1 at 35 weeks gestation presenting with contractions. Patient also reported visual disturbances upon arrival that resolved during triage course. Contractions spaced out after hydration. Reports was rigo every 2 to 3 minutes prior to arrival and they were extremely painful, however contractions improved after p.o. hydration. Denies leakage of fluid, vaginal bleeding, decreased movement. Allergies iodine Allergy (Severe, Verified 08/21/20 18:17) Hives - Pertinent Past Medical History Medical History: Past Medical History (Last Reviewed 08/18/20 @ 14:47 by Yanira Lorenz) Anxiety Exercise-induced asthma Laboratory Studies: Laboratory Tests 08/21/20 Range/Units 17:25 Vag Amniotic Fld Detect Negative (Negative) Review of Systems Constitutional: Denies: Chills, Fever Eyes: Reports: Blurred vision Gastrointestinal: Reports: Abdominal Pain, Nausea Gynecological: Denies: Vaginal bleeding, Vaginal discharge, Vaginal itching Physical Exam Vitals: Vital Signs Temp Pulse BP Pulse Ox 98.8 F 84 114/79 97 08/21/20 19:17 08/21/20 19:17 08/21/20 19:17 08/21/20 19:17 General: Alert, Oriented x3, Cooperative, No apparent distress, Well developed, Well nourished HEENT: Atraumatic, PERRLA, EOMI Lungs: Normal air movement Abdomen: Soft, Non Tender, Non-Distended, Gravid, Appropriate for Gestational Age Neurological: Cranial nerves II-XII grossly intact, Neuro grossly intact FINANCIAL REPORTING SPECIALIST: Normal external genitalia. Negative for: Vulvar lesions Estimated gestational size: Appropriate for gestational size Presentation: Cephalic Cervix Dilation (cm): 1 - Per RN NST - FHR Rate Baby A Variability:: Moderate Decelerations:: None NST Reactive:: Yes FHR Category:: Category I Uterine Activity:: q5 to 6 minutes Impression/Plan 29-year-old G2, P1 at 35 weeks gestation presenting with contractions. Threatened labor -Cervix 1 cm on presentation. Rigo every 3 to 5 minutes. - Given p.o. hydration and contractions to be stopped. -Cervix unchanged on 2-hour recheck. -ROM plus sent and was negative. -Patient discharged home in stable condition with good return precautions. Multi Select Codes - Visit Charges Office Visit/Consults: 95768 OV L3 Est - Urinary/Genital Urinary/Genital CPT Codes: 77649-31 non-stress test Interp
== END 2020-08-21 20:05 | disposition home or self-care (01) ==
LOC: WPOUT 17:13 → WP 17:14
PROVIDERS: Referring Provider Obstetrics & Gynecology; Visit Provider Obstetrics & Gynecology
DX: O60.03 Preterm labor without delivery, third trimester (principal); Z3A.35 35 weeks gestation of pregnancy
CPT/HCPCS: 59025; 59050; 84112; 99218; G0378

== ENCOUNTER → 2020-08-25 | Outpatient (CLI) | payer BC, SELFPAY ==
[2020-08-25 14:50] VITALS: BMI 39.3
[2020-08-25 16:41] LABS: ROM Internal Control Test YES-OK TO RESULT pt. (Internal QC); ROM Patient Test Negative (Negative)
== END | disposition home or self-care (01) ==
LOC: LABSPEC 16:07
PROVIDERS: Visit Provider Obstetrics & Gynecology
DX: O26.899 Other specified pregnancy related conditions, unspecified trimester (principal); N89.8 Other specified noninflammatory disorders of vagina; Z3A.00 Weeks of gestation of pregnancy not specified
CPT/HCPCS: 84112

== ENCOUNTER → 2020-08-31 12:20 | Outpatient (CLI) | payer BC, SELFPAY ==
[2020-08-25 14:50] VITALS: BMI 39.3
--- NOTE | 2020-08-31 12:22 | US_ITS ---
STUDY: SECOND AND THIRD TRIMESTER OBSTETRICAL ULTRASOUND - LIMITED REASON FOR EXAM: Female, 29 years old growth LMP: 12/20/2019. PRIOR ULTRASOUND: Comparison is made with prior study dated 08/07/2020. TECHNIQUE: Transabdominal TECHNICAL QUALITY: Adequate. FINDINGS: There is a single intrauterine fetus. The fetus is in a cephalic presentation. There is demonstrated cardiac activity with a heart rate of 169 bpm. There is a normal amniotic fluid volume. The largest amniotic fluid pocket measures 5.3 cm. The amniotic fluid index (BALAJI) is 9.9 cm. The placenta is fundal and posterior in location. There are Grade 2 placental changes. The cervix is not visualized. BIOMETRY: BPD: 9.5 cm: 38 weeks, 3 days HC: 33 cm: 37 weeks, 3 days AC: 34.3 cm: 38 weeks, 1 days FL: 7.1 cm: 30 weeks, 1 days Age by LMP: 36 weeks, 3 days. SONA by LMP: 09/25/2020. age by prior US: 38 weeks, 5 days. SONA by prior US: 09/16/2019. age by current US: 38 weeks, 3 days. SONA by current US: 09/18/2020. Estimated weight: 3349 grams, +/- 502 grams, 87.5 percentile. The umbilical cord is seen along the posterior neck. US/OB Limited With Biometrics IMPRESSION: Single live intrauterine gestation with a mean gestational age of 38 weeks and 5 days. The measurements obtained today fall within the normal expected range. Electronically Signed: Mc Gay MD at 13:41 EST , Service support ,
== END ==
PROVIDERS: Referring Provider Obstetrics & Gynecology; Visit Provider Obstetrics & Gynecology
DX: O98.519 Other viral diseases complicating pregnancy, unspecified trimester (principal); U07.1 COVID-19; Z3A.00 Weeks of gestation of pregnancy not specified
CPT/HCPCS: 76816

== ENCOUNTER → 2020-09-08 | Outpatient (CLI) | payer BC, SELFPAY ==
[2020-09-08 14:45] VITALS: BMI 39.9
== END | disposition home or self-care (01) ==
LOC: LABSPEC 16:29
PROVIDERS: Visit Provider Obstetrics & Gynecology
DX: Z34.90 Encounter for supervision of normal pregnancy, unspecified, unspecified trimester (principal)
CPT/HCPCS: 87081

== ENCOUNTER 2020-09-12 19:30 | Outpatient (CLI) | payer BC, SELFPAY ==
[2020-09-08 14:45] VITALS: BMI 39.9
[2020-09-12 19:40] VITALS: BMI 39.5
[2020-09-12 19:45] VITALS: BP 121/84; PULSE 76; TEMP 36.3; O2SAT 98
[2020-09-12 20:36] LABS: ROM Internal Control Test YES-OK TO RESULT pt. (Internal QC); ROM Patient Test Negative (Negative)
--- NOTE | 2020-09-12 21:31 | OB.TRI.PN ---
Progress Notes Date of Service: 09/12/20 Progress Note: Patient presents for triage evaluation secondary to false labor possible rupture membranes FHT: 140 moderate variability reactive no decelerations category I tracing [place]: Every 3 to 5 mild contractions Assessment and plan: False labor negative ROM plus no significant cervical change reactive NST, reassuring maternal and status patient discharged to home to follow-up as scheduled. See problem list details for additional plan information. Laboratory Studies: Laboratory Tests 09/12/20 Range/Units 19:50 Vag Amniotic Fld Detect Negative (Negative) Multi Select Codes - Urinary/Genital Urinary/Genital CPT Codes: 17503-60 non-stress test Interp
== END 2020-09-12 21:50 | disposition home or self-care (01) ==
LOC: WPOUT 19:34 → WP 19:35
PROVIDERS: Referring Provider Obstetrics & Gynecology; Visit Provider Obstetrics & Gynecology
DX: O47.9 False labor, unspecified (principal); Z3A.00 Weeks of gestation of pregnancy not specified
CPT/HCPCS: 59025; 59050; 84112; 99218; G0378

== ENCOUNTER 2020-09-20 04:20 | Inpatient (IN) | payer BC, SELFPAY ==
[2020-09-15 14:50] VITALS: BMI 27.7
[2020-09-20] VITALS (50 sets, daily range): BP systolic 106–149; BP diastolic 64–87; PULSE 13–105; RESP 16–18; TEMP 36.1–36.7; O2SAT 82–100; BMI 39.1
[2020-09-20 03:15] LABS: ROM Internal Control Test YES-OK TO RESULT pt. (Internal QC); ROM Patient Test Negative (Negative)
[2020-09-20] MEDS: oxyCODONE 5 MG Tablet PO (03:58)
[2020-09-20] MEDS: Lactated Ringers 500 ML 999 ML IV (04:40)
[2020-09-20] MEDS: Lactated Ringers 1,000 ML 200 ML IV (04:40)
[2020-09-20 04:50] LABS: Absolute Lymphocyte Count 1.63 X10^3/uL (0.83-4.51); Absolute Neutrophil Count 10.3 X10^3/uL (2.0-7.7); Basophil# 0.04 X10^3/uL; Basophil% 0.3 % (0-1); Eosinophil# 0.01 X10^3/uL; Eosinophils% 0.1 % (0-5); Hematocrit 36.7 % (37-47); Hemoglobin 12.8 g/dL (12.0-15.0); Lymphocyte # 1.63 X10^3/ul (4.0); Lymphocyte % 12.6 % (19-41); Mean Corp Hgb Conc 34.9 g/dL (32-36); Mean Corpuscular Hgb 29.3 pg (27.0-32.0); Mean Platelet Vol. 11.4 fl (6.2-12.0); Monocyte# 0.84 X10^3/uL; Monocyte% 6.5 % (0-10); NRBC Flagged by Analyzer 0 % (0-5); Neutrophil # 10.32 X10^3/uL (2.7-7.7); Neutrophil % 79.7 % (47-70); Platelet Count 215 K/mm3 (150-450); RBC Distribution Width SD 36.6 fl (35.1-43.9); Red Blood Count 4.37 M/mm3 (4.2-5.4); White Blood Count 12.9 K/mm3 (4.4-11.0)
--- NOTE | 2020-09-20 05:11 | PCM.HPOB.BLA ---
- Problem List (1) Active labor at term Status: Acute (2) Anxiety during , antepartum Status: Acute Comment: Patient with increasing anxiety. Starting to have panic attacks. Zoloft prescribed. (3) Asthma during Status: Acute Comment: exercise induced. albuterol PRN. (4) History of tetanus, diphtheria, and acellular pertussis booster vaccination (Tdap) Status: Acute Comment: 06/28/20 (5) Influenza vaccination declined Status: Acute (6) Lab test positive for detection of COVID-19 virus Status: Acute Comment: tested positive 07/27/2020 baby asa now and growth u/s (7) Obesity affecting Status: Acute Qualifiers: Comment: 1 tm glucola. encouraged healthy weight gain. recommend third trimester screening. (8) Status: Acute Qualifiers: Comment: NIPT low risk. carrier, and ntd screening declined. Anatomy normal. (9) Supervision of high-risk Status: Acute Qualifiers: Comment: PRR SONA 09/25/20 Girl -Rae Nunez Christopher (10) UTI in Status: Acute Qualifiers: Comment: treated 06/15/20. UTI again noted in triage on 08/03. Treated with Keflex History and Physical Date of Admission: 09/20/20 Intake Vital Signs 09/15/20 Height 5 ft 7 in 09/15/20 Weight: 177 lb 09/15/20 BP 92/76 Intake Visit Reasons: 38WK OB / NST Chief Complaint: est ob NST [employer] Required: No Is patient in pain?: No Allergies iodine Allergy (Severe, Verified 09/15/20 14:50) Hives Medications vitamin #56-iron 35 mg and 5 mg-folic acid 1 mg-dha capsule 1 cap PO DAILY 03/08/20 [History Confirmed 09/15/20] Famotidine 20 mg PO DAILY 08/15/20 [History Confirmed 09/15/20] sertraline 50 mg tablet 50 mg PO DAILY #30 tab 08/25/20 [Rx Confirmed 09/15/20] Last Menstral Period: 12/20/19 Zika: Zika virus screening: Negative : No PFSH PFSH Medical History Anxiety (Acute) Exercise-induced asthma (Acute) Family History Father Hypertension Other Diabetes Heart disease Lupus Social History (Updated 09/15/20 @ 15:[address] Elsy Duran MD) Smoking Status: Never smoker alcohol intake: current alcohol intake frequency: holidays/special occasions only details: pre substance use type: does not use caffeine: Yes what type of physical activity do you participate in: none seatbelt use: always do you feel safe at home: Yes additional social history: Christopher- Patient works at [employer] Patient is currently unemployed Pregancy History 2 Elective abortions Hx Para 1 Spontaneous abortions Hx # Term Pregnancies Ectopic pregnancies Hx # Pregnancies Multiple births # of living children Past Pregnancies Del. Date Name GA/Weeks Outcome Route Bth Weight Gen Labor Lgth Anesthesia Del Locatn Provider FOB Unknown 2015 Mayra 41 live - full term 8lbs 1oz Female 16 epidural [facility] Julio Delivery Date: second degree perineal tear, no other complications Yanira Lorenz HPI 38WK OB / NST : Details: ERLINDA LAZARO is a 29 year old G2, P1 at 39 weeks presents in active labor with regular contractions. She denies any loss of fluid or vaginal bleeding. She has had a complicated by obesity of has had reassuring testing. OB Visit SONA Calculator Estimated Delivery Date Method Current WG Current Estimate 09/25/20 LMP (Certain) 38w 4d Other Estimates 09/18/20 Ultrasound #1 39w 4d Expected Delivery Route/Plan Labor Preferences- CB/BF classes: no labor support person: Christopher labor intervention preferences: [] pain management options preferred: epidural cut cord/dad catch: cord : bottle PP control planned: [] discussed possible routes of delivery and associated risks: [] special requests: [] Specific Issue/Plans flu vaccine: declines tdap vaccine: given rhogam: na LARC form signed: yes Problem list reviewed and updated with the most current plan of care details and appropriate orders placed. Relevant counseling for the gestational age provided. Continue routine care and follow up unless otherwise noted in visit notes/problem list details Initial Weight: 250 lb Date EGA Weight BP Urine Prot Glucose FHR FuHt Pres Dilation Effaced St Visit Note 03/08/20 11w 2d 235 lb (-15 lb) 98/72 160 SM- CRL 4.2 cm cons with LMP 04/05/20 15w 2d 232 lb 6 oz (-17 lb 10 oz) 108/78 Negative Negative 150 GP - denies LOF, VB, cramping. Doing well. Anatomy scan ordered. 05/05/20 19w 4d 232 lb 2 oz (-17 lb 14 oz) 106/58 Negative Negative 145 Sm- questionable small bleeding, iddn't continue. 06/01/20 23w 3d 230 lb 4 oz (-19 lb 12 oz) 118/62 Negative Negative 161 MH-NO Vb, LOF. Was having vaginal irritation but resolved. Good FM. 06/15/20 25w 3d 231 lb (-19 lb) 110/78 1+ Negative 150 26 0 10 -4 GP - Problem visit for cramping. No ctx, LOF, VB, DFM. Cx closed. Urine dip shows signs of UTI. Keflex sent to pharmacy. Also reporting increasing anxiety with panic attack prior to start of cramping. Zoloft sent to pharmacy. 06/28/20 27w 2d 229 lb (-21 lb) 110/64 158 28 MH-No VB, LOF. Reviewed nl 28 wk labs. Tdap, larc. Unable to give enough specimen for urine culture. Will return to lab to do. 07/21/20 30w 4d 228 lb 6 oz (-21 lb 10 oz) 132/88 Negative Negative 150 30 GP - no LOF, VB, DFM, regular ctx. Has ongoing yeast infection. Has tried monistat multiple times. Vaginal culture, rapid BV, and rapid trich performed. IF shows yeast, plan for terazol cream then diflucan if still no relief. 08/18/20 34w 4d 235 lb (-15 lb) 136/68 Negative Negative 140 nst, seen for PTL this week and given steroids, stable 08/25/20 35w 4d 229 lb (-21 lb) 126/70 126/70 09/01/20 36w 4d 232 lb (-18 lb) 130/70 Negative Negative 145 Sm- no vb lof good fm no regular ctx 09/15/20 38w 4d 177 lb (-73 lb) 92/76 140 2 SM- no vb lof good fm nor egular ctx ROS Const Reports system reviewed and no additional complaints, except as documented Card Reports system reviewed and no additional complaints, except as documented Resp Reports system reviewed and no additional complaints, except as documented GI Reports system reviewed and no additional complaints, except as documented, Reports nausea Reports system reviewed and no additional complaints, except as documented Musc Reports system reviewed and no additional complaints, except as documented all other systems reviewed and negativeExam Const General: cooperative, healthy appearing, comfortable HENMT Head: normal to inspection Nose: external nose normal Face and sinus: normal facial exam Neck Neck: normal visual inspection, full ROM, no lymphadenopathy Thyroid: thyroid normal Chest Chest palpation & inspection: normal inspection of the chest Resp Effort & Inspection: normal respiratory effort GI Inspection: normal to inspection Palpation: soft, other (gravid uterus) Other: infant vertex and appropriate size for gestational age Other: Cervical Exam: 4 Extrem General: pedal edema ACOG First Trimester First Trimester: Desire for , Alcohol, Tobacco Cessation, Illicit/Recreational Drug/Substance Use, Intimate Partner Violence, Barriers to care, Unstable Housing, Communication Barriers, Environmental/Work Hazards, Anticipated Course of Care, Toxoplasmosis Precations, Use of Any medications, Sexual activity, Exercise, Dental Care, Sauna/Hot tub use, Seat Belt use, Childbirth classes/Hospital facilities, , Travel, Indications for US and Screening for Aneuploidy Second Trimester Second Trimester: Signs and Symptoms of Labor, Selecting a care provider, Reproductive Life Planning, Care Planning, Depression/Anxiety and Intimate Partner Violence; discussed Tobacco Cessation Diagnostics Diagnostics Details: HIV: Urine Culture: Sequential Screen: NIPT Screen: Office Procedures OB NST Non-Stress Test Indications for Monitoring: Yes Morbid obesity Heart Rate Baseline: 130 Heart Rate Variability: moderate Movement: Present Heart Rate Accelerations: Present Decelerations: Absent Contractions: Absent Impression: Yes Reactive Non-Stress Test Category 1 Assessment & Plan Problems 1. Z34.90 NIPT low risk. carrier, and ntd screening declined. Anatomy normal. 2. Asthma during O99.519; J45.909 exercise induced. albuterol PRN. 3. Supervision of high-risk O09.90 PRR SONA 09/25/20 Girl -Rae JANES Nunez Christopher 4. Obesity affecting O99.210 1 tm glucola. encouraged healthy weight gain. recommend third trimester screening. 5. Influenza vaccination declined Z28.21 6. Anxiety during , antepartum O99.340; F41.9 Patient with increasing anxiety. Starting to have panic attacks. Zoloft prescribed. 7. History of tetanus, diphtheria, and acellular pertussis booster vaccination (Tdap) Z92.29 06/28/20 8. UTI in O23.40 treated 06/15/20. UTI again noted in triage on 08/03. Treated with Keflex 9. Lab test positive for detection of COVID-19 virus U07.1 tested positive 07/27/2020 baby asa now and growth u/s Patient presents IAL, plan expectant management for , Pitocin as needed. Pain management: [plans epidural]. GBS negative. Management of any complications: Obesity with reassuring testing I have reviewed the [facility] and made any clinically relevant updates. Orders Orders: OB NST Today Z34.90 POC Urinalysis 2 Dip (Clinic) Today Coding Level of Care Code OB Routine Diagnoses Z34.90 Asthma during O99.519; J45.909 Supervision of high-risk O09.90 Obesity affecting O99.210 Influenza vaccination declined Z28.21 Anxiety during , antepartum O99.340; F41.9 History of tetanus, diphtheria, and acellular pertussis booster vaccination (Tdap) Z92.29 UTI in O23.40 Lab test positive for detection of COVID-19 virus U07.1 Additional Codes Non-Stress Test (22800)
[2020-09-20] MEDS: fentaNYL-bupivacaine (epidural) 100 ML BAG EPIDURAL (05:45)
[2020-09-20] MEDS: Oxytocin 30 units/NS 500 ml 30 UNITS/500 ML IV.SOLN 334 UNITS IV (08:31)
--- NOTE | 2020-09-20 09:04 | OP.PCM_ITS ---
Problem List (1) Active labor at term Status: Acute (2) Anxiety during , antepartum Status: Acute Comment: Patient with increasing anxiety. Starting to have panic attacks. Zoloft prescribed. (3) Asthma during Status: Acute Comment: exercise induced. albuterol PRN. (4) History of tetanus, diphtheria, and acellular pertussis booster vaccination (Tdap) Status: Acute Comment: 06/28/20 (5) Influenza vaccination declined Status: Acute (6) Lab test positive for detection of COVID-19 virus Status: Acute Comment: tested positive 07/27/2020 baby asa now and growth u/s (7) Obesity affecting Status: Acute Qualifiers: Comment: 1 tm glucola. encouraged healthy weight gain. recommend third trimester screening. (8) Status: Acute Qualifiers: Comment: NIPT low risk. carrier, and ntd screening declined. Anatomy normal. (9) Supervision of high-risk Status: Acute Qualifiers: Comment: PRR SONA 09/25/20 Girl -Rae White (10) UTI in Status: Acute Qualifiers: Comment: treated 06/15/20. UTI again noted in triage on 08/03. Treated with Keflex Vaginal Delivery Maternal Presentation: Active Labor 29-year-old G2, P1 at 39 weeks gestation admitted in active labor. Patient made cervical change with dilation without augmentation. Amniotic Membrane Rupture Type: Artificial Amniotic Fluid Description: Lightly stained meconium Final SONA: 09/25/20 Gestational age: 39 Weeks and 2 Days Date of Procedure: 09/20/20 Pre-Operative Diagnosis: Term , active labor Post-Operative Diagnosis: same Surgery/ Procedure Performed: Spontaneous Vaginal Delivery Type of Anesthesia: Epidural Description of Procedure: Patient began pushing and delivered the head in the CHRISTA presentation. The head was delivered atraumatically a tight nuchal cord was noted and delivered through. The anterior and posterior shoulders delivered without complication followed by the rest of the infant and the infant was placed on the maternal abdomen. Delayed cord clamping was employed for approximately 60 seconds. Cord was clamped and cut and gentle traction was applied to the cord and the placenta delivered spontaneously immediately following it was noted to be intact with three-vessel cord. The perineum and vagina were inspected and a midline second degree laceration was noted and repaired in the standard fashion using 3-0 vicryl rapide suture. EBL was 150 cc. Patient and infant tolerated delivery well. Presentation: Vertex, CHRISTA Placental Delivery Description: Spontaneous Placenta Disposition: [facility] Cord Vessel Description: 3 Vessels Nuchal Cord Compression: Without compression Cord Entanglement: Around neck x 1, tight Drain: Ruggiero to straight drain Estimated Blood Loss: 150 A gender: Female (1 minute): 8 (5 minute): 9 Laceration: Midline, 2nd degree Medications given after delivery: IV Pitocin Complications: None Multi Select Codes - Urinary/Genital Urinary/Genital CPT Codes: 01293 Vaginal Delivery [facility]
[2020-09-20] MEDS: Acetaminophen 500 MG Tablet 1000 MG PO (17:33)
--- NOTE | 2020-09-20 18:45 | DCINST_ITS ---
Discharge Diet: No Restrictions Discharge Activity: Return to Normal Activity, May not drive while taking narcotic pain medications., May Shower May resume sexual activity in: 4-6 weeks Additional Activity Instructions:: Nothing in the vagina for 4-6 weeks. You may return to work/school in 6 weeks. Call your doctor if your incision/area has: Continuous Slow Oozing, Sudden Increased Bleeding, Increased Pain/ Swelling, Increased Redness, Foul Smelling Discharge Additional Instructions: If you experience any of the following, contact your healthcare provider. * Bleeding that soaks a pad every hour for 2 hours * Fever 100.4 or higher * Unrelieved incision or abdominal pain * Swelling, redness, discharge or bleeding from your incision or episiotomy site * Your incision begins to separate * Problems urinating (including inability to urinate or burning while urinating). * Visual changes * Severe headache * Flu-like symptoms * Pain or redness in one of both of your breasts * Pain, warmth, tenderness or swelling in your legs, especially the calf area * Frequent nausea and vomiting * Symptoms of depression or anxiety If you experience any of the following, call 911 or go to the nearest Emergency Room. * Chest pain * Problems breathing * Seizure activity * Partial or complete paralysis of a body part, slurred speech, weakness or drooping of the face, or a sudden inability to walk or hold your balance Allergies/Adverse Reactions: Allergies iodine Allergy (Severe, Verified 09/20/20 01:56) Hives Medications to take at Discharge vitamin #56-iron 35 mg and 5 mg-folic acid 1 mg-dha capsule 1 cap PO DAILY 03/08/20 Famotidine 20 mg PO DAILY 08/15/20 sertraline 50 mg tablet 50 mg PO DAILY #30 tab 08/25/20 When: Call to make an appointment with your doctor in 6 weeks. If you had elevated Blood Pressure or 4th degree laceration you will need to be seen in 2 weeks. Primary Care Physician: Care Physician,No Primary [Primary Care Provider] - Test Results: Test results from this visit will be discussed in further detail at your follow- up appointment, if applicable.
[2020-09-20] MEDS: Naproxen 250 MG Tablet 500 MG PO (20:29)
[2020-09-20] MEDS: Sertraline 50 MG Tablet PO (22:13)
[2020-09-20] MEDS: Famotidine 20 MG Tablet PO (22:14)
[2020-09-21] VITALS (8 sets, daily range): BP systolic 117–140; BP diastolic 67–87; PULSE 57–78; RESP 16–18; TEMP 36.4–36.6
[2020-09-21] MEDS: Acetaminophen 500 MG Tablet 1000 MG PO (01:33)
--- NOTE | 2020-09-21 08:17 | PN.OBGYN_ITS ---
Patient Problems: Active and Suspected Problems (Last Reviewed 09/15/20 @ 14:50 by Yanira Lorenz) Active labor at term (Acute) Lab test positive for detection of COVID-19 virus (Acute) tested positive 07/27/2020 baby asa now and growth u/s UTI in (Acute) treated 06/15/20. UTI again noted in triage on 08/03. Treated with Keflex History of tetanus, diphtheria, and acellular pertussis booster vaccination (Tdap) (Acute) 06/28/20 Anxiety during , antepartum (Acute) Patient with increasing anxiety. Starting to have panic attacks. Zoloft prescribed. Influenza vaccination declined (Acute) Obesity affecting (Acute) 1 tm glucola. encouraged healthy weight gain. recommend third trimester screening. Supervision of high-risk (Acute) PRR SONA 09/25/20 Girl -Rae MARRERO Mayra Christopher Asthma during (Acute) exercise induced. albuterol PRN. (Acute) NIPT low risk. carrier, and ntd screening declined. Anatomy normal. Subjective: Patient doing well without complaints. Tolerating PO. Ambulating and voiding without difficulty. Breast feeding well. Denies chest pain, shortness of breath, calf pain/swelling, fevers, chills, lightheadedness. - Physical Exam Vitals/I&O's: Vital Signs Temp Pulse Resp BP Pulse Ox 97.8 F 74 18 119/76 82 09/21/20 04:07 09/21/20 04:09 09/21/20 04:07 09/21/20 04:09 09/20/20 17:27 Oxygen Delivery Method Room Air Weight: 235 lb 3.2 oz Body Mass Index (BMI) 39.1 Intake and Output for Last 24 Hours 09/19/20 09/20/20 09/21/20 23:59 23:59 23:59 Intake Total 2573.33 / 2573.33 Output Total 1300 / 1300 Balance 1273.33 / 1273.33 General: Alert, Oriented x3, Cooperative, No apparent distress, Well developed, Well nourished HEENT: Atraumatic, PERRLA, EOMI, Normocephalic Neck: Supple, No JVD Lungs: Normal air movement Cardiovascular: Regular rate Abdomen: Soft, Non Tender, Non-Distended, - - fundus firm Extremities: No edema, No Calf Tenderness Neurological: Cranial nerves II-XII grossly intact, Neuro grossly intact Psych/Mental Status: Normal Affect, Appropriate Current Medications Acetaminophen (Acetaminophen 500 Mg Tablet) 1,000 mg PO Q8H PRN PRN PRN Reason: Pain Score 1-3 Last Admin: 09/21/20 01:33 Dose: 1,000 mg Documented by: Bisacodyl (Bisacodyl 10 Mg Suppository) 10 mg RC UD PRN PRN Reason: If no BM Dibucaine (Dibucaine 30 Gm Tube) 1 applic TOPICAL TID PRN PRN; Protocol PRN Reason: Discomfort Famotidine (Famotidine 20 Mg Tablet) 20 mg PO [facility] Last Admin: 09/20/20 22:14 Dose: 20 mg Documented by: Hydrocortisone (Hydrocortisone 2.5% Crm) 1 applic TOPICAL TID PRN PRN; Protocol PRN Reason: Discomfort Methylergonovine Maleate (Methylergonovine 0.2 Mg/Ml Ampul) 0.2 mg IM X1 PRN PRN Reason: Excess bleeding/uterine atony Naproxen (Naproxen 250 Mg Tablet) 500 mg PO Q8H PRN PRN PRN Reason: Pain Score 1-3 Last Admin: 09/20/20 20:29 Dose: 500 mg Documented by: Ondansetron HCl (Ondansetron 4 Mg/2 Ml Vial) 4 mg IV Q4H PRN PRN PRN Reason: Nausea Oxycodone HCl (Oxycodone 5 Mg Tablet) 5 - 10 mg PO Q4H PRN PRN PRN Reason: Pain Score 4-10 Senna/Docusate Sodium (Senna/Docusate Sodium 1 Tablet) 1 - 2 tablet PO DAILY PRN PRN PRN Reason: Constipation Sertraline HCl (Sertraline 50 Mg Tablet) 50 mg PO [facility] Last Admin: 09/20/20 22:13 Dose: 50 mg Documented by: Simethicone (Simethicone 80 Mg Tablet) 80 mg PO [facility] PRN PRN Reason: Indigestion/Stomach pain Sodium Chloride (0.9% Saline Lock 10 Ml Syringe) 5 - 15 ml IV UD PRN PRN Reason: SALINE FLUSH Medical Necessity - Tobacco Use Smoking Status: Never smoker Assessment/Plan All Active Problems (Last Reviewed 02/12/21 @ 14:50 by Yanira Lorenz) Active labor at term (Acute) Lab test positive for detection of COVID-19 virus (Acute) UTI in (Acute) History of tetanus, diphtheria, and acellular pertussis booster vaccination (Tdap) (Acute) Anxiety during , antepartum (Acute) Influenza vaccination declined (Acute) Obesity affecting (Acute) Supervision of high-risk (Acute) Asthma during (Acute) (Acute) Acute maxillary sinusitis (Resolved) Bronchitis (Resolved) Normal spontaneous vaginal delivery (Resolved) Physical exam, pre-employment (Resolved) Supervision of normal (Resolved) Threatened labor (Resolved) URI, acute (Resolved) Visual changes (Resolved) s/p PPD # 1 1. routine post delivery care 2. breast feeding- support given 3. rh positive 4. rubella immune
--- NOTE | 2020-09-21 11:15 | CM.ED ---
Social Work Brief Assessment Labor and Delivery Unit Refer documentation below for further details. Date of Referral/Notification: 09/20/20 Time of Referral: 19:21 Referred By: Dr. Castano Reason for Referral: History of anxiety and Post- Depression. MOB on Zoloft Date of Intervention: 09/21/20 Time of Intervention: 11:15 Informant: Medical record and mother of baby (MOB) Assessment: Met with MOB and father of baby (FOB) Christopher Shafer in room. Introduced role and reason for referral. MOB openly discussed history of anxiety and family history of mental health. MOB discussed Post- Depression after 4-year-old daughter, Mayra was born. MOB reports was started on Zoloft mid-way through her . MOB reports is doing well and feels the medication ?really makes a huge difference.? FOB agreed with MOB?s statement. MOB reports good support from family. MOB states is bottle feeding and has all needs met for baby girl, Rae. Reviewed educational information on PPD with MOB and FOB. MOB denies any further needs at this time. Nursing updated on the above and voice no concerns. Plan: Home with resources provided No further needs requested or indicated. Duarte Hamlin, [employer], NIGHT CLEANER
--- NOTE | 2020-09-21 11:23 | NURSING ---
previous BP was slightly elevated. Had patient rest and retook the BP
== END 2020-09-21 11:30 | disposition home or self-care (01) | DRG 807 ==
LOC: WPOUT 04:25 → WP 04:25
PROVIDERS: Obstetrics & Gynecology; Admitting Provider Obstetrics & Gynecology; Referring Provider Obstetrics & Gynecology; Visit Provider Obstetrics & Gynecology
DX: O99.214 Obesity complicating childbirth (principal); Z37.0 Single live birth; E66.01 Morbid (severe) obesity due to excess calories; O77.0 Labor and delivery complicated by meconium in amniotic fluid; O69.81X0 Labor and delivery complicated by cord around neck, without compression, not applicable or unspecified; O70.1 Second degree perineal laceration during delivery; Z3A.39 39 weeks gestation of pregnancy
CPT/HCPCS: 59025; 59050; 84112; 85025; 86850; 86900; 86901; 99218; J7120; G0378

== ENCOUNTER → 2020-11-01 | Outpatient (CLI) | payer BC, SELFPAY ==
[2020-11-01 10:24] VITALS: BMI 34.8
[2020-11-03 20:31] LABS: HPV Reflexed? NOT INDICATED
== END | disposition home or self-care (01) ==
PROVIDERS: Referring Provider Obstetrics & Gynecology; Visit Provider Obstetrics & Gynecology
DX: Z12.4 Encounter for screening for malignant neoplasm of cervix (principal)
CPT/HCPCS: 88175; G0145

== ENCOUNTER → 2021-05-21 16:05 | Outpatient (CLI) | payer BC, SELFPAY ==
[2021-05-21 16:33] LABS: Amphetamine Urine VISTA NEGATIVE (<1000 ng/mL); Barbiturate Urine VISTA NEGATIVE (< 200 ng/mL); Benzodiazepine Urine VISTA NEGATIVE (< 200 ng/mL); Cocaine Urine VISTA NEGATIVE (< 300 ng/mL); Ecstacy Urine VISTA NEGATIVE (< 500 ng/mL); Methadone Urine VISTA NEGATIVE (< 300 ng/mL); PCP Urine VISTA NEGATIVE (< 25 ng/mL); THC Urine VISTA NEGATIVE (< 50 ng/mL); Vista UDS pH Range 6
[2021-05-24 21:07] LABS: Chlamydia By Nucleic Acid AMP Negative (Negative)
[2021-05-25 08:13] LABS: Gonococcus By Nucleic Acid AMP Negative (Negative)
== END ==
LOC: LAB 16:07
PROVIDERS: Referring Provider Obstetrics & Gynecology; Visit Provider Obstetrics & Gynecology
DX: Z34.90 Encounter for supervision of normal pregnancy, unspecified, unspecified trimester (principal)
CPT/HCPCS: 80307; 87086; 87088; 87491; 87591

== ENCOUNTER → 2021-06-12 10:23 | Outpatient (CLI) | payer BC, SELFPAY ==
[2021-06-12 10:57] LABS: Absolute Lymphocyte Count 1.58 X10^3/uL (0.83-4.51); Absolute Neutrophil Count 6.4 X10^3/uL (2.0-7.7); Basophil# 0.03 X10^3/uL; Basophil% 0.3 % (0-1); Eosinophil# 0.08 X10^3/uL; Eosinophils% 0.9 % (0-5); Hematocrit 38.6 % (37-47); Hemoglobin 13.2 g/dL (12.0-15.0); Lymphocyte # 1.58 X10^3/ul (0.83-4.51); Lymphocyte % 18.2 % (19-41); Mean Corp Hgb Conc 34.2 g/dL (32-36); Mean Corpuscular Hgb 28.9 pg (27.0-32.0); Mean Corpuscular Volume 84.6 fL (81-99); Mean Platelet Vol. 10.6 fl (6.2-12.0); Monocyte# 0.55 X10^3/uL; Monocyte% 6.3 % (0-10); NRBC Flagged by Analyzer 0 % (0-5); Neutrophil # 6.39 X10^3/uL (2.7-7.7); Neutrophil % 73.8 % (47-70); Platelet Count 226 K/mm3 (150-450); RBC Distribution Width CV 11.9 % (11.6-14.6); RBC Distribution Width SD 36.1 fl (35.1-43.9); Red Blood Count 4.56 M/mm3 (4.2-5.4); White Blood Count 8.7 K/mm3 (4.4-11.0)
[2021-06-12 11:50] LABS: NATERA MAILED SPECIMEN
[2021-06-12 12:05] LABS: HIV - WCH Non-Reactive (Nonreactive); Hepatitis B Surface Antigen Non-Reactive (Nonreactive); Hepatitis C Antibody Non-Reactive (Nonreactive); Rubella IgG Reactive (Nonreactive); Syphilis Antibodies Non-reactive
== END ==
PROVIDERS: Referring Provider Obstetrics & Gynecology; Visit Provider Obstetrics & Gynecology
DX: Z34.81 Encounter for supervision of other normal pregnancy, first trimester (principal)
CPT/HCPCS: 36415; 85025; 86703; 86762; 86780; 86803; 86850; 86900; 86901; 87340

== ENCOUNTER → 2021-06-18 09:24 | Outpatient (CLI) | payer BC, SELFPAY ==
[2021-06-18 09:51] LABS: Glucose Challenge Gest 1H 50g 98 mg/dL (70-140)
[2021-06-18 10:37] LABS: NATERA MAILED SPECIMEN
== END ==
PROVIDERS: Referring Provider Obstetrics & Gynecology; Visit Provider Obstetrics & Gynecology
DX: Z34.82 Encounter for supervision of other normal pregnancy, second trimester (principal)
CPT/HCPCS: 36415; 82950

== ENCOUNTER 2021-10-10 09:30 | Outpatient (CLI) | payer BC, SELFPAY ==
[2021-10-10 09:45] LABS: Absolute Lymphocyte Count 1.29 X10^3/uL (0.83-4.51); Absolute Neutrophil Count 8.2 X10^3/uL (2.0-7.7); Basophil# 0.03 X10^3/uL; Basophil% 0.3 % (0-1); Eosinophil# 0.09 X10^3/uL; Eosinophils% 0.9 % (0-5); Hematocrit 35.2 % (37-47); Hemoglobin 11.8 g/dL (12.0-15.0); Lymphocyte # 1.29 X10^3/ul (0.83-4.51); Lymphocyte % 12.6 % (19-41); Mean Corp Hgb Conc 33.5 g/dL (32-36); Mean Corpuscular Hgb 29.4 pg (27.0-32.0); Mean Corpuscular Volume 87.6 fL (81-99); Mean Platelet Vol. 10.6 fl (6.2-12.0); Monocyte# 0.59 X10^3/uL; Monocyte% 5.8 % (0-10); NRBC Flagged by Analyzer 0 % (0-5); Neutrophil # 8.21 X10^3/uL (2.7-7.7); Platelet Count 204 K/mm3 (150-450); RBC Distribution Width CV 12.1 % (11.6-14.6); RBC Distribution Width SD 38.7 fl (35.1-43.9); Red Blood Count 4.02 M/mm3 (4.2-5.4); White Blood Count 10.3 K/mm3 (4.4-11.0)
[2021-10-10 09:53] LABS: Glucose Challenge Gest 1H 50g 110 mg/dL (70-140)
== END 2021-10-10 23:59 | disposition home or self-care (01) ==
LOC: PAVLAB 09:31
PROVIDERS: Referring Provider Obstetrics & Gynecology; Visit Provider Obstetrics & Gynecology
DX: O09.90 Supervision of high risk pregnancy, unspecified, unspecified trimester (principal)
CPT/HCPCS: 36415; 82950; 85025

== ENCOUNTER 2021-11-15 09:05 | Outpatient (CLI) | payer BC, SELFPAY ==
[2021-11-15 09:22] VITALS: BP 113/70; PULSE 82; BMI 40.1
[2021-11-15 09:44] LABS: Mucous, Urine 0 SEEN /hpf (<or=2+); Red Blood Cells-Urine 0 SEEN /hpf (0-5)
[2021-11-15 09:51] LABS: Color, Urine Yellow (Yellow); Glucose, Dipstick Normal (Normal); Ketone-Dipstick 5 mg/dl (Negative); Leukocyte Esterase-Dipstick 500 /ul (Negative); Nitrite-Dipstick Negative (Negative); Occult Blood-Urine Negative /ul (Negative); Protein-Dipstick 15 mg/dl (Negative); Specific Gravity, Urine 1.015 (1.002-1.030); Urine Bilirubin Dipstick Negative (Negative); Urine Clarity Sl. Cloudy (Clear); Urine Urobilinogen Normal (Normal)
[2021-11-15 09:52] VITALS: PULSE 80; TEMP 36.8; O2SAT 98
[2021-11-15 10:08] LABS: ROM Internal Control Test YES-OK TO RESULT pt. (Internal QC); ROM Patient Test Negative (Negative)
[2021-11-15 10:22] LABS: Bacteria 2+ /hpf (None Seen); Squamous Epithelial Cells - UA 10-25 SEEN /hpf (5-10); White Blood Cells 5-10 SEEN /hpf (0-5)
--- NOTE | 2021-11-15 11:12 | OB.TRI.PN ---
Progress Notes Progress Note: Patient presents for triage evaluation secondary to possible rupture of membranes FHT: 135 Moderate variability reactive no decelerations category I tracing [place]: no regular Contractions Assessment and plan: amniotic membranes intact urine culture sent Reactive NST, reassuring maternal and status patient discharged to home to follow-up as scheduled. See problem list details for additional plan information. Laboratory Studies: Laboratory Tests 11/15/21 11/15/21 Range/Units 09:35 09:20 Urine Color Yellow (Yellow) Urine Clarity Sl. Cloudy (Clear) Urine pH 7.0 (5.0 - 8.0) Ur Specific [place] 1.015 (1.002-1.030) Urine Protein 15 H (Negative) mg/dl Urine Glucose (UA) Normal (Normal) mg/dl Urine Ketones 5 H (Negative) mg/dl Urine Occult Blood Negative (Negative) /ul Urine Nitrite Negative (Negative) Urine Bilirubin Negative (Negative) mg/dL Urine Urobilinogen Normal (Normal) mg/dl Ur Leukocyte Esterase 500 H (Negative) /ul Urine RBC 0 SEEN (0-5) /hpf Urine WBC 5-10 SEEN (0-5) /hpf Ur Squamous Epith Cells 10-25 SEEN (5-10) /hpf Urine Bacteria 2+ (None Seen) /hpf Urine Mucus 0 SEEN (<or=2+) /hpf Vag Amniotic Fld Detect Negative (Negative) Charges/Coding Procedures Urinary/Genital 52xxx-59xxx: 61087-01 non-stress test Interp
== END 2021-11-15 23:59 | disposition home or self-care (01) ==
LOC: WP 09:11 → WPOUT 09:11
PROVIDERS: Visit Provider Obstetrics & Gynecology
DX: O26.90 Pregnancy related conditions, unspecified, unspecified trimester (principal); Z3A.00 Weeks of gestation of pregnancy not specified
CPT/HCPCS: 59025; 59050; 81001; 84112; 87086; 87088; 99218; G0378

== ENCOUNTER 2021-11-17 02:37 | Outpatient (CLI) | payer BC, SELFPAY ==
[2021-11-17 02:51] VITALS: BMI 45.1
--- NOTE | 2021-11-17 02:56 | OB.TRI.HP_ITS ---
HPI - General HPI Narrative ERLINDA LAZARO, is a 30 F who presents with headache unresolved with tylenol. she feels out of it and dizzy and feel visual changes when she closes her eyes. she denies any vb lof admits good fm and is having some ctx. Maternal Data Information SONA Calculator Estimated Delivery Date Method Current WG Current Estimate 12/29/21 LMP (Certain) 34w 0d Other Estimates 12/27/21 Ultrasound #1 34w 2d PFSH PFSH Medical History (Updated 11/17/21 @ 02:[address] Elsy Duran MD) Anxiety Exercise-induced asthma Home Medications sertraline 100 mg tablet 100 mg PO DAILY #90 tablet 11/01/20 [Rx Last Taken 11/14/21 22:00 1 tab] multivitamin no.47-iron fum 27 mg-folate no.1 1 mg-dha 300 mg capsule cap PO DAILY 05/08/21 [History Last Taken 11/14/21 22:00 1 tab] hydroxyzine pamoate 25 mg capsule 25 mg PO TID PRN 30 Days #60 cap 10/10/21 [Rx Last Taken Unknown] famotidine 20 mg PO QHS 11/15/21 [History Last Taken 11/14/21 22:00 1 tab] nitrofurantoin monohydrate/macrocrystals 100 mg capsule 100 mg PO Q12H 7 Days #14 cap 11/16/21 [Rx Last Taken Unknown] Allergy/AdvReac Type Severity Reaction Status Date / Time iodine Allergy Severe Hives Verified 11/16/21 10:14 Family History Father Hypertension Other Diabetes Heart disease Lupus Social History Smoking Status: Never smoker alcohol intake: current alcohol intake frequency: holidays/special occasions only details: pre substance use type: does not use caffeine: Yes what type of physical activity do you participate in: none seatbelt use: always do you feel safe at home: Yes additional social history: Christopher- Patient works at [employer] Patient is currently unemployed History 3 Elective abortions Hx Para 2 Spontaneous abortions Hx # Term Pregnancies Ectopic pregnancies Hx # Pregnancies Multiple births # of living children 2 Past Pregnancies Del. Date Name GA/Weeks Outcome Route Bth Weight Infant Gen Labor Lgth Anesthesia Del Locatn Provider FOB Unknown 2015 Mayra 41 live - full term 8lbs 1oz Female 1 6 epidural [facility] Jeb Kim 09/20/20 Rae 39 live - full term 8lbs 5oz Female 7 ho urs epidural [facility] GP Delivery Date: second degree perineal tear, no other complications Yanira Lorenz Delivery Date: 09/20/20 2nd degree laceration; nuchal cord x1 tight; lightly stained meconium Naheed Baker Visit Details Expected Delivery Route/Plan Labor Preferences- CB/BF classes: declines labor support person: christopher labor intervention preferences: requests induction at 39 weeks due to h/o fast labor pain management options preferred: epidural cut cord/dad catch: cord : pumping PP control planned: discussed-wants PP BS discussed possible routes of delivery and associated risks: [] special requests: [] Plans Covid status: considering vaccination Flu vaccine: decline Tdap vaccine: given Rhogam: NA LARC form signed: yes Problem list reviewed and updated with the most current plan of care details and appropriate orders placed. Relevant counseling for the gestational age provided. Continue routine care and follow up unless otherwise noted in visit notes/problem list details OB Flowsheet Initial Weight: 238 lb Date -?-?-?-?-?-?-?-?-?-?-?-?- EGA Weight BP Urine Prot -?-?-?-?-?-?-?-?-?--?-?-?- Glucose FHR FuHt Pres Dilation -?-?-?-?-?-?-?-?-?-?-?-?- Effaced St Visit Note 05/21/21 -?-?-?-?-?-?-?-?-?-?-?-?- 8w 2d 238 lb (+0 oz) 102/74 -?-?-?-?-?-?-?-?-?-?-?-?- 170 -?-?-?-?-?-?-?-?-?-?-?-?- SM- CRL 1.75cm c ons with LMP 06/22/21 -?-?-?-?-?-?-?-?-?-?-?-?- 12w 6d 235 lb 6 oz (-2 lb 10 oz) 100/72 -?-?-?-?-?-?-?-?-?-?-?-?- 156 -?-?-?-?-?-?-?-?-?-?-?-?- JV- no lof, vagi nal bleeding, or cramping. zofran and phenergan refilled. 07/18/21 -?-?-?-?-?-?-?-?-?-?-?-?- 16w 4d 231 lb (-7 lb) 108/70 Negative -?-?-?-?-?-?-?-?-?-?-?-?- Negative 150 -?-?-?-?-?-?-?-?-?-?-?-?- JV- no lof, vagi nal bleeding, or cramping. No complaints. 08/10/21 -?-?-?-?-?-?-?-?-?-?--?-?- 19w 6d 234 lb 4 oz (-3 lb 12 oz) 110/70 Negative -?-?-?-?-?-?-?-?-?-?-?-?- Negative 147 -?-?-?-?-?-?-?-?-?-?-?-?- JV- no lof ,vagi nal bleeding ,or cramping. normal anatomy and normal panorama. 09/11/21 -?-?-?-?-?-?-?-?-?-?-?-?- 24w 3d 234 lb 4 oz (-3 lb 12 oz) 124/74 Negative -?-?-?-?-?-?-?-?-?-?-?-?- Negative 149 -?-?-?-?-?-?-?-?-?-?-?-?- MH-No VB, LOF. G ood FM. Considering tubal after delivery. 28 wk labs ordered. 10/10/21 -?-?-?-?-?-?-?-?-?-?-?-?- 28w 4d 236 lb 6 oz (-1 lb 10 oz) 106/71 Negative -?-?-?-?-?-?-?-?-?-?-?-?- Negative 144 32 -?-?-?-?-?-?-?-?-?-?-?-?- JV- vistaril sen t to pharmacy for anxiety. normal gct. no other complaints. tdap today 10/25/21 -?-?-?-?-?-?-?-?-?-?-?-?- 30w 5d 238 lb 4 oz (+4 oz) 118/62 Trace -?-?-?-?-?-?-?-?-?-?-?-?- Negative 159 -?-?-?-?-?-?-?-?-?-?-?-?- MH-No VB, LOF. G ood FM. Has not needed vistaril. Larc done. Sched wkly NST at 32 wk 11/07/21 -?-?-?-?-?-?-?-?-?-?-?-?- 32w 4d 241 lb 2 oz (+3 lb 2 oz) 110/68 Negative -?-?-?-?-?-?-?-?-?-?-?-?- Negative 140 33 -?-?-?-?-?-?-?-?-?-?-?-?- MH-No Vb, LOF. G ood FM. Reactive NST. 11/16/21 -?-?-?-?-?-?-?-?-?-?-?-?- 33w 6d 242 lb 6 oz (+4 lb 6 oz) 122/84 Negative -?-?-?-?-?-?-?-?-?-?-?-?- Negative 130 -?-?-?-?-?-?-?-?-?--?-?-?- SM- co some lowe r cramping no vb good fm SM- co some lower cramping a nd urinary frequency- macrobid ordered mixed culture positive but treating due to symptoms no vb good fm 11/17/21 -?-?-?-?-?-?-?-?-?-?-?-?- 34w 0d 271 lb 9.6 oz (+33 lb 9.6 oz) -?-?-?-?-?-?-?-?-?-?-?-?- -?-?-?-?-?-?-?--?-?-?-?-?- ROS Constitutional Constitutional: Reports as per HPI Eyes Eyes: Reports as per HPI ENT HEENT: Reports as per HPI Gastrointestinal Gastrointestinal: Reports systems reviewed and no addt'l complaints, except as documented Genitourinary Genitourinary: Reports systems reviewed and no addt'l complaints, except as documented Physical Exam Const alert, oriented x3 and no apparent distress HEENT Head and Scalp: normocephalic and atraumatic Eyes EOMs intact bilaterally Neck full ROM and no lymphadenopathy Chest inspection of chest normal Resp normal respiratory effort GI GI Narrative: gravid, abdomen nontender, AGA Neuro no focal motor deficits Motor Exam: clonus absent NST FHR Rate Baby A Baseline: 140 Variability:: Moderate Accelerations:: 15 x 15 Decelerations:: None NST Reactive:: Yes FHR Category:: Category I Uterine Activity:: no regular Assessment & Plan (1) Headache in : COMMENT: preeclampsia labs ordered, medicine given for HARRIS. PLAN: fu in office as scheduled Charges/Coding Procedures Urinary/Genital [id number]: 11860-86 non-stress test Interp Multi Select Codes Visit Charges Office Visit/Consults: 43808 OV L3 Est
[2021-11-17 03:07] VITALS: TEMP 36.9
[2021-11-17 03:08] VITALS: PULSE 89; O2SAT 98
[2021-11-17] MEDS: 0.9% Saline Lock 10 ML Syringe IV (03:15)
[2021-11-17 03:22] VITALS: BP 118/73; PULSE 77
[2021-11-17 03:25] LABS: Absolute Lymphocyte Count 2.54 X10^3/uL (0.83-4.51); Absolute Neutrophil Count 5.4 X10^3/uL (2.0-7.7); Basophil# 0.03 X10^3/uL; Basophil% 0.3 % (0-1); Eosinophil# 0.09 X10^3/uL; Hemoglobin 10.9 g/dL (12.0-15.0); Lymphocyte # 2.54 X10^3/ul (0.83-4.51); Lymphocyte % 28.6 % (19-41); Mean Corp Hgb Conc 34.1 g/dL (32-36); Mean Corpuscular Hgb 28.5 pg (27.0-32.0); Mean Corpuscular Volume 83.6 fL (81-99); Mean Platelet Vol. 10.4 fl (6.2-12.0); Monocyte# 0.75 X10^3/uL; Monocyte% 8.4 % (0-10); NRBC Flagged by Analyzer 0 % (0-5); Neutrophil # 5.41 X10^3/uL (2.7-7.7); Platelet Count 192 K/mm3 (150-450); RBC Distribution Width CV 11.6 % (11.6-14.6); Red Blood Count 3.83 M/mm3 (4.2-5.4); White Blood Count 8.9 K/mm3 (4.4-11.0)
[2021-11-17] MEDS: proMETHazine 25 MG/ML Syringe 12.5 MG IM (03:26)
[2021-11-17] MEDS: oxyCODONE 5 MG Tablet PO ×2 (03:35→04:01)
[2021-11-17 03:47] LABS: ALB/GLOB Ratio 0.6 RATIO (0.9-2.4); AST(SGOT) 15 U/L (15-37); Alanine Aminotransfer ALT/SGPT 10 U/L (13-56); Albumin, Serum 2.5 g/dL (3.2-5.0); Alkaline Phosphatase 90 U/L (45-117); Anion Gap 8 (5-15); BUN 7 mg/dL (7-18); BUN/Creat Ratio 10.3 RATIO (10-20); Chloride 105 mmol/L (98-107); Creatinine, Serum 0.68 mg/dL (0.55-1.02); EST Glomerular Filtration Rate 108 mL/min (>60); Est Glom Filt Rate - Afr Amer 131 mL/min (>60); Estimated Creatinine Clearance 109.84 ml/min; Globulin 3.9 g/dL (2.2-4.2); Glucose 86 mg/dL (74-106); Potassium 3.8 mmol/L (3.5-5.1); Protein, Total 6.4 g/dL (6.4-8.2); Sodium Level 136 mmol/L (136-145)
[2021-11-17 03:59] VITALS: BP 118/80; PULSE 75
[2021-11-17 04:03] LABS: Protein, Urine (Random) 17.9 mg/dL (<11.9); Protein:Creat Ratio 140 mg/g CRE (0-200)
[2021-11-17 04:21] VITALS: BP 111/74; PULSE 77
[2021-11-17 04:51] VITALS: BP 114/78; PULSE 81
== END 2021-11-17 05:28 | disposition home or self-care (01) ==
LOC: WPOUT 02:50 → WP 02:51
PROVIDERS: Visit Provider Obstetrics & Gynecology
DX: O26.893 Other specified pregnancy related conditions, third trimester (principal); F41.9 Anxiety disorder, unspecified; R51.9 Headache, unspecified; Z79.899 Other long term (current) drug therapy; O99.343 Other mental disorders complicating pregnancy, third trimester; Z3A.34 34 weeks gestation of pregnancy
CPT/HCPCS: 36415; 59025; 59050; 80053; 82570; 84156; 85025; 96372; 99218; A4216; G0378

== ENCOUNTER → 2021-11-22 | Outpatient (CLI) | payer BC, SELFPAY | END | disposition home or self-care (01) | LOC: LABSPEC 11-23 06:40 | PROVIDERS: Referring Provider Obstetrics & Gynecology; Visit Provider Obstetrics & Gynecology | DX: R30.9 Painful micturition, unspecified (principal) | CPT/HCPCS: 87086; 87088 ==

== ENCOUNTER 2021-11-29 01:35 | Outpatient (CLI) | payer BC, SELFPAY ==
[2021-11-29 01:42] VITALS: BMI 40.4
[2021-11-29 01:49] VITALS: BP 123/81; PULSE 91; TEMP 37.1; O2SAT 99
[2021-11-29 02:38] LABS: ROM Internal Control Test YES-OK TO RESULT pt. (Internal QC); ROM Patient Test Negative (Negative)
[2021-11-29 02:51] LABS: Red Blood Cells-Urine 0 SEEN /hpf (0-5)
[2021-11-29 02:52] LABS: Color, Urine Yellow (Yellow); Glucose, Dipstick Normal (Normal); Ketone-Dipstick Negative (Negative); Leukocyte Esterase-Dipstick 500 /ul (Negative); Nitrite-Dipstick Negative (Negative); Occult Blood-Urine 50 /ul (Negative); Protein-Dipstick 15 mg/dl (Negative); Urine Bilirubin Dipstick Negative (Negative); Urine Clarity Sl. Cloudy (Clear); Urine Urobilinogen 1 mg/dl (Normal)
[2021-11-29 03:03] LABS: Bacteria 3+ /hpf (None Seen); Mucous, Urine 1+ /hpf (<or=2+); Squamous Epithelial Cells - UA 25-50 SEEN /hpf (5-10); White Blood Cells 25-50 SEEN /hpf (0-5)
[2021-11-29] MEDS: Betamethasone/Betamethasone 30 MG/5 ML Vial 12 MG IM (03:14)
--- NOTE | 2021-11-29 04:49 | US_ITS ---
STUDY: OBSTETRICAL ULTRASOUND - BIOPHYSICAL PROFILE REASON FOR EXAM: Female, 31 years old isolated late deceleration - LMP: 03/24/2021. PRIOR ULTRASOUND: None. TECHNIQUE: Transabdominal TECHNICAL QUALITY: Adequate. FINDINGS: There is a single intrauterine fetus. The fetus is in a cephalic presentation. There is demonstrated cardiac activity with a heart rate of 138 bpm. There is a normal amniotic fluid volume. The largest amniotic fluid pocket measures 6.6 cm. The amniotic fluid index (BALAJI) is 21.6 cm. The placenta is posterior in location and is not low lying. There are Grade 2 placental changes. Age by LMP: 35 weeks, 5 days. SONA by LMP: 12/29/2021. BIOPHYSICAL PROFILE: Breathing Movements (FBM): 2 Gross Body Movements (GBM): 2 Tone (FT): 2 Amniotic Fluid Volume (AFV): 2 TOTAL SCORE: 8 / 8 US/Biophysical Prof W/O Non Stres IMPRESSION: Normal biophysical profile of 8/8. Electronically Signed: Mc Gay MD at 9:04 EDT ,
[2021-11-29] MEDS: Lactated Ringers 1,000 ML 999 ML IV (04:50)
[2021-11-29 04:59] VITALS: TEMP 36.5; O2SAT 98; O2SAT 99
[2021-11-29 05:00] VITALS: BP 114/79; PULSE 78
[2021-11-29] MEDS: Acetaminophen 500 MG Tablet 1000 MG PO (05:07)
[2021-11-29 05:18] LABS: Absolute Lymphocyte Count 1.81 X10^3/uL (0.83-4.51); Absolute Neutrophil Count 7.7 X10^3/uL (2.0-7.7); Basophil# 0.05 X10^3/uL; Basophil% 0.5 % (0-1); Eosinophil# 0.07 X10^3/uL; Eosinophils% 0.7 % (0-5); Hematocrit 36.5 % (37-47); Hemoglobin 12.1 g/dL (12.0-15.0); Lymphocyte # 1.81 X10^3/ul (0.83-4.51); Lymphocyte % 17.4 % (19-41); Mean Corp Hgb Conc 33.2 g/dL (32-36); Mean Corpuscular Hgb 28.7 pg (27.0-32.0); Mean Corpuscular Volume 86.5 fL (81-99); Mean Platelet Vol. 11.9 fl (6.2-12.0); Monocyte# 0.71 X10^3/uL; Monocyte% 6.8 % (0-10); NRBC Flagged by Analyzer 0 % (0-5); Neutrophil # 7.71 X10^3/uL (2.7-7.7); Neutrophil % 73.8 % (47-70); POSITIVE COUNT YES; RBC Distribution Width SD 37.8 fl (35.1-43.9); Red Blood Count 4.22 M/mm3 (4.2-5.4); White Blood Count 10.4 K/mm3 (4.4-11.0)
[2021-11-29 05:21] LABS: Differential Indicated SCAN CRITERIA MET
[2021-11-29] MEDS: Lactated Ringers 1,000 ML 150 ML IV (05:48)
[2021-11-29 06:27] LABS: Platelet Count 196 K/mm3 (150-450)
--- NOTE | 2021-11-29 08:01 | OB.TRI.HP_ITS ---
HPI - General HPI Narrative ERLINDA LAZARO, is a 31 F who presents with increasing in intensity*. She also has urinary frequency. She has been treated recently for UTI but no culture definitely positive only mixed contamination. She feels good movement and denies any CVA tenderness. She denies any vaginal bleeding but had an increase in discharge and a questionable loss of fluid. Negative ROM plus upon initial evaluation. Maternal Data Information SONA Calculator Estimated Delivery Date Method Current WG Current Estimate 12/29/21 LMP (Certain) 35w 5d Other Estimates 12/27/21 Ultrasound #1 36w 0d PFSH PFSH Medical History (Updated 11/29/21 @ 08:[address] Elsy Duran MD) Anxiety Exercise-induced asthma Home Medications multivitamin no.47-iron fum 27 mg-folate no.1 1 mg-dha 300 mg capsule 1 cap PO DAILY 05/08/21 [History Last Taken 11/16/21 08:00] hydroxyzine pamoate 25 mg capsule 25 mg PO TID PRN 30 Days #60 cap 10/10/21 [Rx Last Taken Unknown] famotidine 20 mg PO QHS 11/15/21 [History Last Taken 11/28/21] Tylenol 1,000 mg PO/SL PRN PRN 11/17/21 [History Last Taken 11/16/21 21:00] sertraline [Zoloft] 100 mg PO DAILY 11/29/21 [History Last Taken 11/28/21] Allergy/AdvReac Type Severity Reaction Status Date / Time iodine Allergy Severe Hives Verified 11/29/21 01:58 shellfish derived Allergy Swelling Verified 11/29/21 01:58 Family History Father Hypertension Other Diabetes Heart disease Lupus Social History Smoking Status: Never smoker alcohol intake: current alcohol intake frequency: holidays/special occasions only details: pre substance use type: does not use caffeine: Yes what type of physical activity do you participate in: none seatbelt use: always do you feel safe at home: Yes additional social history: Christopher- Patient works at [employer] Patient is currently unemployed History 3 Elective abortions Hx Para 2 Spontaneous abortions Hx # Term Pregnancies Ectopic pregnancies Hx # Pregnancies Multiple births # of living children 2 Past Pregnancies Del. Date Name GA/Weeks Outcome Route Bth [facility] Mayra 41 live - full term 8lbs 1oz Female 1 6 epidural [facility] Jeb Kim 09/20/20 Rae 39 live - full term 8lbs 5oz Female 7 ho urs epidural [facility] GP Delivery Date: second degree perineal tear, no other complications Yanira Lorenz Delivery Date: 09/20/20 2nd degree laceration; nuchal cord x1 tight; lightly stained meconium Naheed Baker Visit Details Expected Delivery Route/Plan Labor Preferences- CB/BF classes: declines labor support person: christopher labor intervention preferences: requests induction at 39 weeks due to h/o fast labor pain management options preferred: epidural cut cord/dad catch: cord : pumping PP control planned: discussed-wants PP BS discussed possible routes of delivery and associated risks: [] special requests: [] Plans Covid status: considering vaccination Flu vaccine: decline Tdap vaccine: given Rhogam: NA LARC form signed: yes Problem list reviewed and updated with the most current plan of care details and appropriate orders placed. Relevant counseling for the gestational age provided. Continue routine care and follow up unless otherwise noted in visit notes/problem list details OB Flowsheet Initial Weight: 238 lb Date -?-?-?-?-?-?-?-?-?-?-?--?- EGA Weight BP Urine Prot -?-?-?-?-?-?-?-?-?-?-?-?- Glucose FHR FuHt Pres Dilation -?-?-?-?-?-?-?-?-?-?-?-?- Effaced St Visit Note 05/21/21 -?-?-?-?-?-?-?-?-?-?-?-?- 8w 2d 238 lb (+0 oz) 102/74 -?-?-?-?-?-?-?-?-?-?-?-?- 170 -?-?-?-?-?-?-?-?-?-?-?-?- SM- CRL 1.75cm c ons with LMP 06/22/21 -?-?-?-?-?-?-?-?-?-?-?-?- 12w 6d 235 lb 6 oz (-2 lb 10 oz) 100/72 -?-?-?-?-?-?-?-?-?-?-?-?- 156 -?-?-?-?-?-?-?-?-?-?-?-?- JV- no lof, vagi nal bleeding, or cramping. zofran and phenergan refilled. 07/18/21 -?-?-?-?-?-?-?-?-?-?-?-?- 16w 4d 231 lb (-7 lb) 108/70 Negative -?-?-?-?-?-?-?-?-?-?-?-?- Negative 150 -?-?-?-?-?-?-?-?-?-?-?-?- JV- no lof, vagi nal bleeding, or cramping. No complaints. 08/10/21 -?-?-?-?-?-?-?-?-?-?-?-?- 19w 6d 234 lb 4 oz (-3 lb 12 oz) 110/70 Negative -?-?-?-?-?-?-?-?-?-?-?-?- Negative 147 -?-?-?-?-?-?-?-?-?-?-?-?- JV- no lof ,vagi nal bleeding ,or cramping. normal anatomy and normal panorama. 09/11/21 -?-?-?-?-?-?-?-?-?-?-?-?- 24w 3d 234 lb 4 oz (-3 lb 12 oz) 124/74 Negative -?-?-?-?-?-?-?-?-?-?-?-?- Negative 149 -?-?-?-?-?-?-?-?-?-?-?-?- MH-No VB, LOF. G ood FM. Considering tubal after delivery. 28 wk labs ordered. 10/10/21 -?-?-?-?-?-?-?-?-?-?-?-?- 28w 4d 236 lb 6 oz (-1 lb 10 oz) 106/71 Negative -?-?-?-?-?-?-?-?-?-?-?-?- Negative 144 32 -?-?-?-?-?-?-?-?-?-?-?-?- JV- vistaril sen t to pharmacy for anxiety. normal gct. no other complaints. tdap today 10/25/21 -?-?-?-?-?-?-?-?-?-?-?-?- 30w 5d 238 lb 4 oz (+4 oz) 118/62 Trace -?-?-?-?-?-?-?-?-?-?-?-?- Negative 159 -?-?-?-?-?-?-?-?-?-?-?-?- MH-No VB, LOF. G ood FM. Has not needed vistaril. Larc done. Sched wkly NST at 32 wk 11/07/21 -?-?-?-?-?-?-?-?-?-?-?-?- 32w 4d 241 lb 2 oz (+3 lb 2 oz) 110/68 Negative -?-?-?-?--?-?-?-?-?-?-?-?- Negative 140 33 -?-?-?-?-?-?-?-?-?-?-?-?- MH-No Vb, LOF. G ood FM. Reactive NST. 11/16/21 -?-?-?-?-?-?-?-?-?-?-?-?- 33w 6d 242 lb 6 oz (+4 lb 6 oz) 122/84 Negative -?-?-?-?-?-?-?-?-?-?-?-?- Negative 130 -?-?-?-?-?-?-?-?-?-?-?-?- SM- co some lowe r cramping no vb good fm SM- co some lower cramping a nd urinary frequency- macrobid ordered mixed culture positive but treating due to symptoms no vb good fm 11/17/21 -?-?-?-?-?-?-?-?-?--?-?-?- 34w 0d 271 lb 9.6 oz (+33 lb 9.6 oz) 118/73 118/73 118/80 118/80 111/74 111/74 114/78 114/78 -?-?-?-?-?-?-?-?-?-?-?-?- -?-?-?-?-?-?-?-?-?-?-?-?- 11/22/21 -?-?-?-?-?-?-?-?-?-?-?-?- 34w 5d 243 lb 6 oz (+5 lb 6 oz) 120/78 Negative -?-?--?-?-?-?-?-?-?-?-?-?- Negative 140 -?-?-?-?-?-?-?-?-?-?-?-?- SM- no vb lof go od fm no reuglar ctx co pubic bone pain urinary frequency 11/28/21 -?-?-?-?-?-?-?-?-?-?-?-?- 35w 4d 244 lb (+6 lb) 112/74 Negative -?-?-?-?-?-?-?-?-?-?-?-?- Negative 150 -?-?-?-?-?-?-?-?-?-?-?-?- MH-reactive NST only 11/29/21 -?-?-?-?-?-?-?-?-?-?-?-?- 35w 5d 243 lb 2.718 oz (+5 lb 2.718 oz) 123/81 114/79 15 mg/dl (Negative) H -?-?-?-?-?-?-?-?-?-?-?-?- -?-?-?-?-?-?-?-?-?-?-?-?- ROS Constitutional Constitutional: Reports systems reviewed and no addt'l complaints, except as documented and as per HPI ENT HEENT: Reports systems reviewed and no addt'l complaints, except as documented Cardiovascular Cardiovascular: Reports systems reviewed and no addt'l complaints, except as documented Respiratory/Chest Respiratory/Chest: Reports systems reviewed and no addt'l complaints, except as documented Gastrointestinal Gastrointestinal: Reports as per HPI Genitourinary Genitourinary: Reports as per HPI Musculoskeletal Musculoskeletal: Reports systems reviewed and no addt'l complaints, except as documented Integumentary Integumentary: Reports systems reviewed and no addt'l complaints, except as documented Neurologic Neurologic: Reports systems reviewed and no addt'l complaints, except as documented Physical Exam Const alert, oriented x3 and no apparent distress HEENT Head and Scalp: normocephalic and atraumatic Neck full ROM and no lymphadenopathy Chest inspection of chest normal Resp normal respiratory effort GI GI Narrative: gravid, abdomen nontender, AGA Manual OB Exam: dilated, effaced and station NST FHR Rate Baby A Baseline: 140 Variability:: Moderate Accelerations:: 15 x 15 Decelerations:: None NST Reactive:: Yes FHR Category:: Category I Uterine Activity:: regular q 2-4 Assessment & Plan (1) Threatened labor: COMMENT: Extended observation 11/29 Celestone given 11/29 (2) Variable heart rate decelerations, antepartum: COMMENT: Extended monitoring 11/29, BPP ordered, IV fluids PLAN: See assessment and plan problem comments for details Charges/Coding Multi Select Codes Visit Charges Office Visit/Consults: 70331 OV L3 Est Urinary/Genital Urinary/Genital CPT Codes: 61743-09 non-stress test Interp
== END 2021-11-29 08:30 | disposition home or self-care (01) ==
LOC: WPOUT 01:37 → WP 01:38
PROVIDERS: Visit Provider Obstetrics & Gynecology
DX: O47.03 False labor before 37 completed weeks of gestation, third trimester (principal); O76 Abnormality in fetal heart rate and rhythm complicating labor and delivery; Z3A.35 35 weeks gestation of pregnancy; O99.343 Other mental disorders complicating pregnancy, third trimester; F41.9 Anxiety disorder, unspecified; Z79.899 Other long term (current) drug therapy
CPT/HCPCS: 96360; 36415; 59025; 59050; 76819; 81001; 84112; 85025; 86850; 86900; 86901; 87086; 87088; 96372; 99218; J7120; G0378; J0702

== ENCOUNTER 2021-11-30 07:15 | Outpatient (CLI) | payer BC, SELFPAY ==
[2021-11-30 07:39] VITALS: BMI 40.5
[2021-11-30] MEDS: Betamethasone/Betamethasone 30 MG/5 ML Vial 12 MG IM (08:43)
--- NOTE | 2021-12-01 03:37 | OB.TRI.PN ---
Progress Notes Date of Service: 11/30/21 Progress Note: celestone for prematuirty, threatened labor
== END 2021-11-30 08:50 | disposition home or self-care (01) ==
LOC: WPOUT 07:22 → WP 07:28
PROVIDERS: Referring Provider Obstetrics & Gynecology; Visit Provider Obstetrics & Gynecology
DX: O47.00 False labor before 37 completed weeks of gestation, unspecified trimester (principal); Z3A.00 Weeks of gestation of pregnancy not specified
CPT/HCPCS: 96372; 99218; G0378; J0702

== ENCOUNTER → 2021-12-07 | Outpatient (CLI) | payer BC, SELFPAY ==
[2021-12-07 10:50] LABS: ROM Internal Control Test YES-OK TO RESULT pt. (Internal QC); ROM Patient Test Negative (Negative)
== END | disposition home or self-care (01) ==
LOC: LABSPEC 10:45
PROVIDERS: Visit Provider Obstetrics & Gynecology
DX: O26.892 Other specified pregnancy related conditions, second trimester (principal); O09.92 Supervision of high risk pregnancy, unspecified, second trimester; N89.8 Other specified noninflammatory disorders of vagina
CPT/HCPCS: 84112; 87081

== ENCOUNTER → 2021-12-11 | Outpatient (CLI) | payer BC, SELFPAY ==
[2021-12-11 10:49] LABS: ROM Internal Control Test YES-OK TO RESULT pt. (Internal QC); ROM Patient Test Negative (Negative)
== END | disposition home or self-care (01) ==
LOC: LABSPEC 10:25
PROVIDERS: Nurse Practitioner Women's Health; Visit Provider Obstetrics & Gynecology
DX: O47.00 False labor before 37 completed weeks of gestation, unspecified trimester (principal); Z87.59 Personal history of other complications of pregnancy, childbirth and the puerperium
CPT/HCPCS: 84112

== ENCOUNTER 2021-12-14 20:04 | Inpatient (IN) | payer BC, SELFPAY ==
[2021-12-14] VITALS (44 sets, daily range): BP systolic 86–143; BP diastolic 49–91; PULSE 60–105; TEMP 36.2–36.9; O2SAT 80–100; BMI 39.6
--- NOTE | 2021-12-14 13:48 | HP.PCM.OB_ITS ---
HPI - General HPI Narrative ERLINDA LAZARO, is a 31y/o @ 37 weeks 6 days who presents to L&D per my request after noting 2 variable decels on the office NST. The NST was being peformed because earlier in the month she was in triage with some similar decelerations. She was given IV Fluids and sent home after several hours of reassuring pattern. The patient denies LOF, vaginal bleeding, or dec fm. She was 1 cm in the office last week and is now showing contractions every 2-3 minutes on the monitor. Maternal Data Information SONA Calculator Estimated Delivery Date Method Current WG Current Estimate 12/29/21 LMP (Certain) 37w 6d Other Estimates 12/27/21 Ultrasound #1 38w 1d PFSH PFS Medical History (Updated 12/14/21 @ 09:36 by Fabienne Schmitt) Anxiety Exercise-induced asthma Home Medications multivitamin no.47-iron fum 27 mg-folate no.1 1 mg-dha 300 mg capsule 1 cap PO DAILY 05/08/21 [History Last Taken 12/14/21 06:00] famotidine 20 mg PO QHS 11/15/21 [History Last Taken 12/13/21 21:00] Tylenol 1,000 mg PO/SL PRN PRN 11/17/21 [History Last Taken 11/16/21 21:00] sertraline [Zoloft] 100 mg PO DAILY 11/29/21 [History Last Taken 12/13/21 21:00] hydroxyzine pamoate [Vistaril] 25 mg PO PRN PRN 12/14/21 [History Last Taken Unknown] Allergy/AdvReac Type Severity Reaction Status Date / Time iodine Allergy Severe Hives Verified 12/14/21 11:57 shellfish derived Allergy Swelling Verified 12/14/21 11:57 Family History Father Hypertension Other Diabetes Heart disease Lupus Social History Smoking Status: Never smoker alcohol intake: current alcohol intake frequency: holidays/special occasions only details: pre substance use type: does not use caffeine: Yes what type of physical activity do you participate in: none seatbelt use: always do you feel safe at home: Yes additional social history: Christopher- Patient works at [employer] Patient is currently unemployed History 3 Elective abortions Hx Para 2 Spontaneous abortions Hx # Term Pregnancies Ectopic pregnancies Hx # Pregnancies Multiple births # of living children 2 Past Pregnancies Del. Date Name GA/Weeks Outcome Route Bth Weight Gen Labor Lgth Anesthesia Del Locatn Provider FOB Unknown 2015 Mayra 41 live - full term 8lbs 1oz Female 1 6 epidural [facility] Russ Julio 09/20/20 Rae 39 live - full term 8lbs 5oz Female 7 ho urs epidural [facility] GP Delivery Date: second degree perineal tear, no other complications Yanira Lorenz Delivery Date: 09/20/20 2nd degree laceration; nuchal cord x1 tight; lightly stained meconium Naheed Baker Visit Details Expected Delivery Route/Plan Labor Preferences- CB/BF classes: declines labor support person: christopher labor intervention preferences: requests induction at 39 weeks due to h/o fast labor pain management options preferred: epidural cut cord/dad catch: cord : pumping PP control planned: discussed-wants PP BS discussed possible routes of delivery and associated risks: [] special requests: [] Plans Covid status: considering vaccination Flu vaccine: decline Tdap vaccine: given Rhogam: NA LARC form signed: yes Problem list reviewed and updated with the most current plan of care details and appropriate orders placed. Relevant counseling for the gestational age provided. Continue routine care and follow up unless otherwise noted in visit notes/problem list details OB Flowsheet Initial Weight: 238 lb Date -?-?-?-?-?-?-?-?-?-?-?-?- EGA Weight BP Urine Prot -?-?-?-?-?-?-?-?-?-?-?-?- Glucose FHR FuHt Pres Dilation -?-?-?-?-?-?-?-?-?-?-?-?- Effaced St Visit Note 05/21/21 -?-?-?-?-?-?-?-?-?-?-?-?- 8w 2d 238 lb (+0 oz) 102/74 -?-?-?-?-?-?-?-?-?-?-?-?- 170 -?-?-?-?-?-?-?-?-?-?-?-?- SM- CRL 1.75cm c ons with LMP 06/22/21 -?-?-?-?-?-?-?-?-?-?-?-?- 12w 6d 235 lb 6 oz (-2 lb 10 oz) 100/72 -?-?-?-?-?-?-?-?-?-?-?-?- 156 -?-?-?-?-?-?-?-?-?-?-?-?- JV- no lof, vagi nal bleeding, or cramping. zofran and phenergan refilled. 07/18/21 -?-?-?-?-?-?-?-?-?-?-?-?- 16w 4d 231 lb (-7 lb) 108/70 Negative -?-?-?-?-?-?-?-?-?-?-?-?- Negative 150 -?-?-?-?-?-?-?-?-?-?-?-?- JV- no lof, vagi nal bleeding, or cramping. No complaints. 08/10/21 -?-?-?-?-?-?-?-?-?-?-?-?- 19w 6d 234 lb 4 oz (-3 lb 12 oz) 110/70 Negative -?-?-?-?-?-?-?-?-?-?-?-?- Negative 147 -?-?-?-?-?-?-?-?-?-?-?-?- JV- no lof ,vagi nal bleeding ,or cramping. normal anatomy and normal panorama. 09/11/21 -?-?-?-?-?-?-?-?-?-?-?-?- 24w 3d 234 lb 4 oz (-3 lb 12 oz) 124/74 Negative -?-?-?-?-?-?-?-?-?-?-?-?- Negative 149 -?-?-?-?-?-?-?-?-?-?-?-?- MH-No VB, LOF. G ood FM. Considering tubal after delivery. 28 wk labs ordered. 10/10/21 -?-?-?-?-?-?-?-?-?-?-?-?- 28w 4d 236 lb 6 oz (-1 lb 10 oz) 106/71 Negative -?-?-?-?--?-?-?-?-?-?-?-?- Negative 144 32 -?-?-?-?-?-?-?-?-?-?-?-?- JV- vistaril sen t to pharmacy for anxiety. normal gct. no other complaints. tdap today 10/25/21 -?-?-?-?-?-?-?-?-?-?-?-?- 30w 5d 238 lb 4 oz (+4 oz) 118/62 Trace -?-?-?-?-?-?-?-?-?-?-?-?- Negative 159 -?-?-?-?-?-?-?--?-?-?-?-?- -No VB, LOF. G ood FM. Has not needed vistaril. Larc done. Sched wkly NST at 32 wk 11/07/21 -?-?-?-?-?-?-?-?-?-?-?-?- 32w 4d 241 lb 2 oz (+3 lb 2 oz) 110/68 Negative -?-?-?-?-?-?-?-?-?-?-?-?- Negative 140 33 -?-?-?-?-?-?-?-?-?-?-?-?- -No Vb, LOF. G ood FM. Reactive NST. 11/16/21 -?-?-?-?-?-?-?-?-?-?-?-?- 33w 6d 242 lb 6 oz (+4 lb 6 oz) 122/84 Negative -?-?-?-?-?-?-?-?-?-?-?-?- Negative 130 -?-?-?-?-?-?-?-?-?-?-?-?- SM- co some lowe r cramping no vb good fm SM- co some lower cramping a nd urinary frequency- macrobid ordered mixed culture positive but treating due to symptoms no vb good fm 11/17/21 -?-?-?-?-?-?-?-?-?-?-?-?- 34w 0d 271 lb 9.6 oz (+33 lb 9.6 oz) 118/73 118/73 118/80 118/80 111/74 111/74 114/78 114/78 -?-?-?-?-?-?-?-?-?-?-?-?- -?-?-?-?-?-?-?-?-?-?-?-?- 11/22/21 -?-?-?-?-?-?-?-?-?-?-?-?- 34w 5d 243 lb 6 oz (+5 lb 6 oz) 120/78 Negative -?-?-?-?-?-?-?-?-?-?-?-?- Negative 140 -?-?-?-?-?-?-?-?-?-?-?-?- SM- no vb lof go od fm no reuglar ctx co pubic bone pain urinary frequency 11/28/21 -?-?-?-?-?-?-?-?-?-?-?-?- 35w 4d 244 lb (+6 lb) 112/74 Negative -?-?-?-?-?-?-?-?-?-?-?-?- Negative 150 -?-?-?-?-?-?-?-?-?-?-?-?- MH-reactive NST only 11/29/21 -?-?-?-?-?-?-?-?-?-?-?-?- 35w 5d 243 lb 2.718 oz (+5 lb 2.718 oz) 123/81 114/79 15 mg/dl (Negative) H -?-?-?-?-?-?-?-?-?-?-?-?- -?-?-?-?-?-?-?-?-?-?-?-?- 12/07/21 -?-?-?-?-?-?-?-?-?-?-?-?- 36w 6d 240 lb (+2 lb) 120/70 -?-?-?-?-?-?-?-?-?-?-?-?- 150 37 Cephalic 1 -?-?-?-?-?-?-?-?-?-?-?-?- 50 JV- nst reactive. pt worried about precip delivery. having contractions every 2-3 min on the monitor. moving exams to twice a week. 12/11/21 -?-?-?-?-?-?-?-?-?-?-?-?- 37w 3d 239 lb (+16 oz) 118/60 Negative -?-?-?-?-?-?-?-?-?-?-?-?- Negative 147 Cephalic 1 -?-?-?-?-?-?-?-?-?-?-?-?- 50 -4 MH-NO VB. Some DC but no more than previously. ROM collected. 12/14/21 -?-?-?-?-?-?-?-?-?-?-?-?- 37w 6d 237 lb 8 oz (-8 oz) 118/78 Negative -?-?-?-?-?-?-?--?-?-?-?-?- Negative 130 Cephalic -?-?-?-?-?-?-?-?-?-?-?-?- JV- broken up va riable decel with contraction, zabrina 16. sending to L&D for extended monitoring and possible IOL. pt is status post steroids and has h/p precip delivery. 12/14/21 -?-?-?-?-?-?-?-?-?-?-?-?- 37w 6d 238 lb 1.588 oz (+1.588 oz) 114/76 -?-?-?-?-?-?-?-?-?-?-?-?- -?-?-?-?-?-?-?-?-?-?-?-?- NST FHR Rate Baby A Baseline: 130 Variability:: Moderate Accelerations:: 15 x 15 Decelerations:: Variable FHR Category:: Category II ROS Constitutional Constitutional: Denies change in weight, fatigue, fever(s), headache(s), poor appetite or weakness Eyes Eyes: Denies blurry vision, change in vision, seeing flashes or spots in vision ENT HEENT: Denies dizziness, headache(s), loss taste/smell or sore throat Cardiovascular Cardiovascular: Denies chest pain, dizziness, dyspnea, irregular heart rhythm, leg edema, palpitations, rapid heart rate or vomiting Respiratory/Chest Respiratory/Chest: Denies chest tightness, cough, dyspnea or breast pain Gastrointestinal Gastrointestinal: Denies abdominal pain, anorexia, constipation, cramping, diarrhea, hemorrhoids, vomiting or weight changes Genitourinary Genitourinary: Denies dysuria, flank pain, genital lesions, genital pain, urinary frequency or urinary urgency Musculoskeletal Musculoskeletal: Denies back pain, difficulty walking, joint pain, limited range of motion, muscle cramps or numbness Integumentary Integumentary: Denies lesions or unusual bruising Neurologic Neurologic: Denies abnormal movements, abnormal speech, dizziness, numbness, seizure-like activity or syncope Psychiatric Psychiatric: Denies anxiety, behavioral changes, change in appetite, change in libido, cognitive impairment, confusion, depression, difficulty concentrating, hallucinations or suicidal thoughts Endocrine Endocrinology: Denies excessive sweating, polydipsia or polyuria Hematologic/Lymphatic Hematologic/Lymphatic: Denies easy bleeding, easy bruising or lymphadenopathy Allergic/Immunologic Allergic/Immunologic: Denies itchy eyes, lip swelling, seasonal rhinorrhea, rhinitis, throat swelling, tongue swelling, eczemia, wheezing or asthma Vital Signs Vital Signs Vital Signs: 12/14/21 11:48 Temperature 98.2 F Temperature Source Temporal Pulse Rate 93 Blood Pressure 114/76 BP Systolic 114 BP Diastolic 76 Weight Weight: 238 lb 1.588 oz Body Mass Index (BMI) 39.6 Physical Exam Const alert, oriented x3, no apparent distress and healthy appearing General Appearance: cooperative; Negative for anxious HEENT normocephalic Face and Sinus: normal facial exam Eyes EOMs intact bilaterally and no scleral icterus General Eye: normal appearance of both eyes Neck full ROM and supple Lymph Lymphatic: no lymphadenopathy noted Chest Chest: abnormal inspection of the chest Resp normal respiratory effort Effort and Inspection: able to speak in complete sentences Cardio regular rate GI soft to palpation and non-tender Inspection: gravid Palpation: soft; Negative for tender external exam normal Amniotic Fluid: other cx 3/70/-2, membranes palpated and somewhat bulging Back/Spine no CVA tenderness Extremity normal to inspection, full ROM and no clubbing, cyanosis or edema General Extremity: Negative for calf tenderness or edema Skin Lesions: no lesions Rashes: no rashes Psych mental status grossly normal Labs Labs Labs: Blood Type O POSITIVE Antibody Screen NEGATIVE Hct 36.5 % (37-47) L Hgb 12.1 g/dL (12.0-15.0) Obstetrics US Syphilis Total Ab Non-reactive Rubella IgG Antibody Reactive (Nonreactive) Hep Bs Antigen Non-Reactive (Nonreactive) Chlamydia DNA (ROMEL) Negative (Negative) Neisseria gonorrhoeae DNA (ROMEL) Negative (Negative) HIV 1&2 Antibody Non-Reactive (Nonreactive) Glucose 1 Hr 50 gm 110 mg/dL (70-140) Rhogam given: No Assessment & Plan (1) History of precipitous delivery: COMMENT: pt requesting close monitoring after 36 weeks due to h/o fast deliveries and remote from hospital (30-40 min) biweekly visits after 36 weeks; ROM weekly and NSTs per JV. (2) Variable heart rate decelerations, antepartum: COMMENT: Extended monitoring 11/29, BPP ordered, IV fluids (3) Threatened labor: QUALIFIERS: Trimester: third trimester Qualified Code(s): O47.03 - False labor before 37 completed weeks of gestation, third trimester COMMENT: Extended observation 11/29 Celestone given 11/29 (4) Obesity affecting : QUALIFIERS: Trimester: third trimester Qualified Code(s): O99.213 - Obesity complicating , third trimester COMMENT: 1 tm glucola. encouraged healthy weight gain. recommend third trimester screening. (5) Contraception management: QUALIFIERS: Contraceptive encounter type: other general counseling and advice Qualified Code(s): Z30.09 - Encounter for other general counseling and advice on contraception COMMENT: Wants PPBS (6) Short interval between pregnancies affecting , antepartum: COMMENT: 09/24 precip deliveries. asking for 39 week IOL (7) : QUALIFIERS: Weeks of gestation: 37 weeks Qualified Code(s): Z3A.37 - 37 weeks gestation of COMMENT: GBS negative, NIPT- low risk female declines carrier. Anatomy US normal. NL gct, hg PLAN: pt has an overall reassuring tracing but at times is category 2 due to a couple of variable decels that decrease from baseline down to 120 and 100. Plan to watch longer and decide when labor and delivery is a little better staffed to induce vs continue observation. If pattern worsens will induce labor
[2021-12-14] MEDS: Lactated Ringers 500 ML 999 ML IV ×2 (20:35→22:03)
[2021-12-14 20:53] LABS: Absolute Lymphocyte Count 1.89 X10^3/uL (0.83-4.51); Absolute Neutrophil Count 4.9 X10^3/uL (2.0-7.7); Basophil# 0.01 X10^3/uL; Basophil% 0.1 % (0-1); Eosinophil# 0.04 X10^3/uL; Eosinophils% 0.5 % (0-5); Hematocrit 33.6 % (37-47); Hemoglobin 11.2 g/dL (12.0-15.0); Lymphocyte # 1.89 X10^3/ul (0.83-4.51); Lymphocyte % 25.8 % (19-41); Mean Corp Hgb Conc 33.3 g/dL (32-36); Mean Corpuscular Hgb 28.2 pg (27.0-32.0); Mean Corpuscular Volume 84.6 fL (81-99); Mean Platelet Vol. 11.4 fl (6.2-12.0); Monocyte# 0.49 X10^3/uL; Monocyte% 6.7 % (0-10); NRBC Flagged by Analyzer 0 % (0-5); Neutrophil # 4.87 X10^3/uL (2.7-7.7); Neutrophil % 66.6 % (47-70); Platelet Count 176 K/mm3 (150-450); RBC Distribution Width CV 12.3 % (11.6-14.6); RBC Distribution Width SD 37.2 fl (35.1-43.9); Red Blood Count 3.97 M/mm3 (4.2-5.4); White Blood Count 7.3 K/mm3 (4.4-11.0)
[2021-12-14] MEDS: Lactated Ringers 1,000 ML 200 ML IV (21:08)
[2021-12-14] MEDS: fentaNYL-bupivacaine (epidural) 100 ML BAG EPIDURAL (21:55)
[2021-12-14] MEDS: Ondansetron 4 MG/2 ML Vial IV (22:21)
[2021-12-15] VITALS (30 sets, daily range): BP systolic 102–128; BP diastolic 58–82; PULSE 60–95; RESP 16–18; TEMP 35.9–36.7; O2SAT 98–100
[2021-12-15] MEDS: Lactated Ringers 500 ML 999 ML IV (01:48)
[2021-12-15] MEDS: Oxytocin 30 units/NS 500 ml 30 UNITS/500 ML IV.SOLN IV (02:08)
[2021-12-15] MEDS: Mag Hydrox/Al Hydrox/Simeth 30 ML UDC PO (02:23)
[2021-12-15] MEDS: Lactated Ringers 1,000 ML 200 ML IV (04:29)
[2021-12-15] MEDS: fentaNYL-bupivacaine (epidural) 100 ML BAG EPIDURAL (05:22)
--- NOTE | 2021-12-15 06:39 | PCM.PN.BLA ---
Progress Note 5/70/-2 clear fluid arom current tracing: FHT: 130 Moderate variability reactive no decelerations category I tracing [place]: 2-4 Contractions reviewed tracing abnormalities since last note: tachycardia overnight resolved A/P: continue pit per protocol, iupc placed
[2021-12-15] MEDS: Oxytocin 30 units/NS 500 ml 30 UNITS/500 ML IV.SOLN 334 UNITS IV (08:38)
--- NOTE | 2021-12-15 08:43 | EX.PCM.OBRPT ---
Assessment & Plan (1) Asthma during : COMMENT: exercise induced. albuterol PRN. (2) Supervision of high-risk : QUALIFIERS: Trimester: second trimester Qualified Code(s): O09.92 - Supervision of high risk , unspecified, second trimester COMMENT: PRR girl Xeina SONA: 12/29/21 PC: Rae Nunez : Christopher (3) Obesity affecting : QUALIFIERS: Trimester: third trimester Qualified Code(s): O99.213 - Obesity complicating , third trimester COMMENT: 1 tm glucola. encouraged healthy weight gain. recommend third trimester screening. (4) Anxiety during , antepartum: COMMENT: Zoloft prescribed. counseling encouraged. Stable (5) : QUALIFIERS: Weeks of gestation: 37 weeks Qualified Code(s): Z3A.37 - 37 weeks gestation of COMMENT: GBS negative, NIPT- low risk female declines carrier. Anatomy US normal. NL gct, hg (6) Short interval between pregnancies affecting , antepartum: COMMENT: 09/24 precip deliveries. asking for 39 week IOL (7) Contraception management: QUALIFIERS: Contraceptive encounter type: other general counseling and advice Qualified Code(s): Z30.09 - Encounter for other general counseling and advice on contraception COMMENT: Wants PPBS (8) History of precipitous delivery: COMMENT: pt requesting close monitoring after 36 weeks due to h/o fast deliveries and remote from hospital (30-40 min) biweekly visits after 36 weeks; ROM weekly and NSTs per JV. (9) Vaginal delivery: COMMENT: SM 38 IOL decel girl Lary Ford Maternal Data Information SONA Calculator Estimated Delivery Date Method Current WG Current Estimate 12/29/21 LMP (Certain) 38w 0d Other Estimates 12/27/21 Ultrasound #1 38w 2d Vaginal Delivery Operative Information Date of Procedure: 12/15/21 Pre-Operative Diagnosis: IAL Post-Operative Diagnosis: same Surgery / Procedure Performed: Spontaneous Vaginal Delivery Type of Anesthesia: Epidural Special Medications: none Estimated Blood Loss: 300 Fluids Replaced: crystalloid Findings Description of Procedure: Patient began pushing and delivered the head in the CHRISTA presentation. The head was delivered atraumatically . The anterior and posterior shoulders delivered without complication followed by the rest of the infant and the infant was placed on the maternal abdomen. Delayed cord clamping was employed for approximately 60 seconds. Cord was clamped and cut and gentle traction was applied to the cord and the placenta delivered spontaneously immediately following it was noted to be intact with three-vessel cord. The perineum and vagina were inspected and noted to have no laceration. EBL was 300. Patient and infant tolerated delivery well. Presentation: CHRISTA Amniotic Membrane Rupture Type: Artificial Amniotic Fluid Description: Clear Placental Delivery Description: Spontaneous Placenta Disposition: [facility] Cord Vessel Description: 3 Vessels Cord Entanglement: None Delayed Cord Clamping: Yes Post Vaginal Delivery Medications Given After Delivery: IV Pitocin Episiotomy Description: None Laceration: None Complication Complications: None Procedures Urinary/Genital [id number]: [id number] Vaginal Delivery [facility]
--- NOTE | 2021-12-15 08:46 | PCM.DC ---
Discharge Instructions Diet Discharge Diet: No restrictions Activity Discharge Activity: Return to Normal Activity, May Not Drive (while taking narcotic pain medications.) and May Shower May resume sexual activity in: 4-6 weeks Dressing / Incision Call your doctor if your incision/area has: Continuous Slow Oozing, Sudden Increased Bleeding, Increased Pain/ Swelling, Increased Redness and Foul Smelling Discharge Follow Up Care Please Follow Up With: Elsy Duran MD When: Call [phone] to make an appointment with your doctor in 6 weeks. If you had elevated blood pressure or 4th degree laceration, you will need to be seen in 2 weeks. Test Results: Test results from this visit will be discussed in further detail at your follow-up appointment, if applicable. Discharge Plan Admission Admit Date/Time: 12/14/21 20:04 Attending Provider: Elsy Duran Primary Care Provider: Care Physician,Roselia Primary Discharge Orders/Prescriptions Prescriptions: No Action PNV-DHA 27 mg iron-1 mg -300 mg capsule 1 cap PO DAILY RF: 0 famotidine 20 mg Tablet 20 mg PO QHS RF: 0 Tylenol 1,000 mg PO/SL PRN PRN (Reason: Pain) RF: 0 sertraline [Zoloft] 100 mg tablet 100 mg PO DAILY RF: 0 hydroxyzine pamoate [Vistaril] 25 mg capsule 25 mg PO PRN PRN (Reason: anxiety) RF: 0 Referrals / Follow Up: Care Physician,No Primary [Primary Care Provider] - Disposition Disposition (needs filled in before D/C Order can be placed): Home, Self Care
[2021-12-15] MEDS: Ibuprofen 600 MG Tablet PO ×3 (09:44→23:33)
[2021-12-15] MEDS: Sertraline 100 MG Tablet PO (09:45)
--- NOTE | 2021-12-15 16:32 | CM.ED ---
SW Assessment Referral Source: molder feeder Reason: History of anxiety and depression SW spoke to RN Donna who indicated no concerns with patient and that patient is doing well. Patient's was in the room but slept during the whole interview. Mom: Pam Shafer PNC: Jo Delivered at 37 +6 Control: Tubal at 6 weeks Baby: Nida Avina called John 12/15/21 Weight: 8 lbs 8 ounces Tool Maker: Naheed Grant Breast Feeding which is going well. MOB Other Children: Mayra, age 5 Rae, 15 months Transportation: Patient reports that she has access to transportation and is able to drive Supplies: Patient reports that she has all nb supplies including bassinet, crib, diapers and clothes. Supports: Patient reports that her is a support as well as her mother. Patient's works 3 rd shift and the mother resides with them and is there for help during the day. Education Level: Patient graduated from high school and has no learning issues Employment: Patient is not employed outside the home Agency Involvement: Patient reports no JFS, WIC, HMG, Counseling, Legal and CSB involvement. FOB: Christopher Time Together: Together since 2009 and since 2014 Involved at : Yes Employed at [employer]. He will take Friday and Friday off Other children: FOB is father to all 3 of the children FOB MH/AOD/Domestic Violence: Patient denied Maternal MH History: Patient said that she feels she had a tinge of post depression with her first child. She reports that she began to take Zoloft during her second as she was anxious. Patient reports that her current was an oops so she got increasingly anxious. Patient talked to her MD who prescribed Zoloft beginning at 25 mg and increasing to the current level of 100mg. Patient said that the Zoloft is working well and she plans to continue to take the Zoloft. Patient reports she has Visteral for PRN anxiety but has not taken any of it but indicated it helps to know I have it. Patient said that her mother also has depression and anxiety so her mother helps to ensure that she is managing well. No current or past SI/HI. No past psych hospitalization. No current counseling. Patient was educated on Post depression, Shaken Baby Syndrome and Safe Sleeping Patient reports no alcohol use. However, reports drinking at holidays and special events. NO drug use. No nicotine use. Patient was holding the nb and appeared comfortable with the nb. Patient was smiling when talking the baby and appeared to be bonding appropriately. Daphnie updated charge Jennifer that patient is clear for discharge home. Plan: Home at discharge Marci RAUSCH
[2021-12-15] MEDS: Acetaminophen 500 MG Tablet 1000 MG PO (21:19)
[2021-12-15] MEDS: Famotidine 20 MG Tablet PO (23:34)
[2021-12-16 03:30] VITALS: BP 104/72; PULSE 62; RESP 16; TEMP 36.3; O2SAT 97
[2021-12-16 08:02] VITALS: BP 110/82; PULSE 70; RESP 18; TEMP 36.7
[2021-12-16] MEDS: Sertraline 100 MG Tablet PO (10:37)
[2021-12-16] MEDS: Ibuprofen 600 MG Tablet PO ×2 (11:54→20:45)
--- NOTE | 2021-12-16 13:17 | PCM.PN.OB ---
Subjective Subjective Patient doing well without complaints. Tolerating PO. Ambulating and voiding without difficulty. feeding well. Denies chest pain, shortness of breath, calf pain/swelling, fevers, chills, lightheadedness. Objective Data Objective Data Vital Signs: Vital Signs Temp Pulse Resp BP Pulse Ox 98.1 F 70 18 110/82 H 97 12/16/21 08:02 12/16/21 08:02 12/16/21 08:02 12/16/21 08:02 12/16/21 03:30 Oxygen Delivery Method Room Air Weight: 238 lb 1.588 oz Body Mass Index (BMI) 39.6 Intake & Output: Intake and Output for Last 24 Hours 12/14/21 12/15/21 12/16/21 23:59 23:59 23:59 Intake Total 1186.67 / 1186.67 2915.09 / 2915.09 Output Total 1900 / 1900 Balance 1186.67 / 1186.67 1015.09 / 1015.09 Lab / Micro Data Result Diagrams: 12/14/21 20:35 Micro: Microbiology 12/14/21 20:30 Nasal Secretion SARS-CoV-2 Antigen (Rapid) - Final ROS Constitutional Constitutional: Reports systems reviewed and no addt'l complaints, except as documented Cardiovascular Cardiovascular: Reports systems reviewed and no addt'l complaints, except as documented Respiratory/Chest Respiratory/Chest: Reports systems reviewed and no addt'l complaints, except as documented Gastrointestinal Gastrointestinal: Reports systems reviewed and no addt'l complaints, except as documented Physical Exam Const alert, oriented x3 and no apparent distress HEENT Head and Scalp: atraumatic Resp normal respiratory effort GI soft to palpation and non-tender Bimanual Exam - Vag & Uterus: uterus non-tender Uterus Palpation: uterus fundus firm (below Umbilicus) Assessment & Plan (1) Vaginal delivery: COMMENT: SM 38 IOL decel girl [place]ary [place] (2) Anxiety during , antepartum: COMMENT: Zoloft prescribed. counseling encouraged. Stable PLAN: s/p PPD # 1 1. routine post delivery care 2. breast feeding- support given 3. rh positive 4. rubella immune
[2021-12-16 14:00] VITALS: BP 113/76; PULSE 67; RESP 18; TEMP 36.7; O2SAT 98
[2021-12-16 20:40] VITALS: BP 118/71; PULSE 78; RESP 18; TEMP 36.8; O2SAT 99
[2021-12-17 00:30] VITALS: BP 126/82; PULSE 79; RESP 18; TEMP 36.9; O2SAT 98
== END 2021-12-17 00:49 | disposition home or self-care (01) | DRG 807 ==
LOC: WPOUT 20:05 → WP 20:05
PROVIDERS: Admitting Provider Obstetrics & Gynecology; Visit Provider Obstetrics & Gynecology
DX: O76 Abnormality in fetal heart rate and rhythm complicating labor and delivery (principal); Z37.0 Single live birth; E66.9 Obesity, unspecified; F41.9 Anxiety disorder, unspecified; O99.213 Obesity complicating pregnancy, third trimester; Z3A.37 37 weeks gestation of pregnancy; O99.344 Other mental disorders complicating childbirth; Z79.899 Other long term (current) drug therapy
CPT/HCPCS: 59025; 59050; 85025; 86850; 86900; 86901; 87426; 99218; J7120; G0378; J2405

== ENCOUNTER → 2025-08-01 | Outpatient (CLI) | payer BC, SELFPAY ==
[2025-08-01 13:32] LABS: hCG Titer Quant., Serum 27212 mIU/mL (<9 non-preg)
[2025-08-02 20:08] LABS: Chlamydia By Nucleic Acid AMP Negative (Negative); Gonococcus By Nucleic Acid AMP Negative (Negative)
[2025-08-02 21:07] LABS: HPV APTIMA, High Risk Negative (Negative)
== END | disposition home or self-care (01) ==
PROVIDERS: Visit Provider Student in an Organized Health Care Education/Training Program
DX: Z12.4 Encounter for screening for malignant neoplasm of cervix (principal); O09.90 Supervision of high risk pregnancy, unspecified, unspecified trimester; Z3A.00 Weeks of gestation of pregnancy not specified
CPT/HCPCS: 36415; 84702; 87086; 87088; 87491; 87591; 87624; 88175; G0145

== ENCOUNTER → 2025-08-03 | Outpatient (CLI) | payer BC, SELFPAY ==
[2025-08-03 12:57] LABS: hCG Titer Quant., Serum 15294 mIU/mL (<9 non-preg)
== END | disposition home or self-care (01) ==
PROVIDERS: Visit Provider Student in an Organized Health Care Education/Training Program
DX: Z34.90 Encounter for supervision of normal pregnancy, unspecified, unspecified trimester (principal)
CPT/HCPCS: 36415; 84702